=== PATIENT | female | born 1955 | race Caucasian/White ===

== ENCOUNTER → 2017-07-27 18:26 | Outpatient (CLI) | payer OTHER, SELFPAY | PROVIDERS: Family Provider Family Medicine; PCP Family Medicine; Visit Provider Nurse Practitioner Adult Health | DX: R30.0 Dysuria (principal) | CPT/HCPCS: 87086; 87088 ==

== ENCOUNTER 2017-10-30 09:08 | Emergency (ER) | payer OTHER, SELFPAY ==
[2017-10-30 09:09] VITALS: BP 161/80; PULSE 84; RESP 18; TEMP 36.4; O2SAT 97; BMI 30.9
[2017-10-30 09:45] LABS: Bacteria 0 SEEN /hpf (None Seen); Mucous, Urine 0 SEEN /hpf (<or=2+)
[2017-10-30 09:50] LABS: Color, Urine Yellow (Yellow); Glucose, Dipstick Normal (Normal); Ketone-Dipstick 5 mg/dl (Negative); Leukocyte Esterase-Dipstick 500 /ul (Negative); Nitrite-Dipstick Negative (Negative); Occult Blood-Urine 250 /ul (Negative); Protein-Dipstick 30 mg/dl (Negative); Urine Bilirubin Dipstick Negative (Negative); Urine Clarity Clear (Clear); Urine Urobilinogen Normal (Normal)
[2017-10-30 09:52] LABS: Red Blood Cells-Urine 5-10 SEEN /hpf (0-5); White Blood Cells 0-5 SEEN /hpf (0-5)
[2017-10-30 09:53] LABS: Squamous Epithelial Cells - UA 0-5 SEEN /hpf (5-10)
[2017-10-30] MEDS: Ondansetron 4 MG/2 ML Vial IV (09:56)
[2017-10-30] MEDS: 0.9% Normal Saline 1,000 ML 1000 ML IV (09:56)
[2017-10-30] MEDS: Morphine 4 MG/ML Syringe IV (09:57)
--- NOTE | 2017-10-30 10:10 | CT_ITS ---
STUDY: CT ABDOMEN AND PELVIS WITHOUT CONTRAST REASON FOR EXAM: Female, 62 years old. Left flank pain. History of kidney stones. RADIATION DOSAGE (If Supplied By Facility): CTDIvol = ( 14.47 ) mGy, DLP = ( 684.55 ) mGycm TECHNIQUE: Transaxial images were obtained from the dome of the diaphragm to the symphysis pubis without oral contrast, and without intravenous contrast. Sagittal and coronal images were reconstructed. Individualized dose optimization techniques were used for this CT. COMPARISON: Comparison is made with prior study dated January 09, 2017. FINDINGS: Minimal degree of increased markings in the anterior aspect of the left lower lobe suggestive of either atelectasis and/or early infiltrate. The visualized portions of the heart are within normal limits. Normal liver. Increased density within the gallbladder lumen. This may represent sludge. Normal spleen. Normal pancreas. Normal bilateral adrenal glands. There are 2 small nonobstructive intrarenal calculi in the lower pole of the right kidney measuring approximately 4 mm. Mild degree of left hydronephrosis and left hydroureter due to a 4 mm calculus in the distal portion of the left ureter. Left perinephric stranding and periureteric stranding. There is a nonobstructive 4 mm calculus in the lower pole calyx of the left kidney. There is a small hiatal hernia. Normal small intestine. There are multiple colonic diverticula consistent with diverticulosis. The appendix is visualized and appears normal. There is scattered atherosclerotic calcification of the abdominal aorta, without a demonstrated aneurysm. Normal inferior vena cava. There is borderline retroperitoneal lymphadenopathy with enlarged nodes no greater than 10mm in the short axis diameter. Normal urinary bladder. Normal abdominal wall. There are degenerative changes of the visualized lumbar spine. CT/Abdomen/Pelvis without Cont IMPRESSION: 4 mm obstructive calculus in the distal portion of the left ureter causing left hydronephrosis and hydroureter. Bilateral nonobstructive intrarenal calculi. Sigmoid diverticulosis. Electronically Signed: Chester Coello MD at 11:10 EDT Tel [phone], Service support ,
[2017-10-30 10:27] LABS: Absolute Lymphocyte Count 1.27 X10^3/ul (0.83-4.51); Absolute Neutrophil Count 4.6 X10^3/uL (2.0-7.7); Basophil# 0.04 X10^3/uL; Basophil% 0.6 % (0-1); Eosinophil# 0.48 X10^3/uL; Eosinophils% 7.1 % (0-5); Hematocrit 39.6 % (37-47); Hemoglobin 13.3 g/dl (12.0-15.0); Lymphocyte # 1.27 X10^3/ul (4.0); Lymphocyte % 18.7 % (19-41); Mean Corp Hgb Conc 33.6 g/gl (32-36); Mean Corpuscular Hgb 32.6 pg (27.0-32.0); Mean Corpuscular Volume 97.1 fL (81-99); Mean Platelet Vol. 10.7 fl (6.2-12.0); Monocyte# 0.43 X10^3/uL; Monocyte% 6.3 % (0-10); Neutrophil # 4.56 X10^3/uL (2.7-7.7); Neutrophil % 67.2 % (47-70); POSITIVE COUNT NO; POSITIVE DIFFERENTIAL NO; POSITIVE MORPHOLOGY NO; Platelet Count 275 K/mm3 (150-450); RBC Distribution Width CV 13.4 % (11.6-14.6); RBC Distribution Width SD 46.1 fl (35.1-43.9); Red Blood Count 4.08 M/mm3 (4.2-5.4); White Blood Count 6.8 K/mm3 (4.4-11.0)
[2017-10-30 10:40] LABS: AST(SGOT) 23 U/L (15-37); Alanine Aminotransfer ALT/SGPT 32 U/L (13-56); Albumin, Serum 3.6 g/dL (3.2-5.0); Alkaline Phosphatase 58 U/L (45-117); Anion Gap 7 (5-15); BUN 16 mg/dL (7-18); BUN/Creat Ratio 14.2 RATIO (10-20); Chloride 106 mmol/L (98-107); Creatinine, Serum 1.13 mg/dL (0.55-1.02); EST Glomerular Filtration Rate 52 mL/min (>60); Est Glom Filt Rate - Afr Amer 63 mL/min (>60); Estimated Creatinine Clearance 46.45 ml/min; Globulin 3.6 g/dL (2.2-4.2); Glucose 98 mg/dL (74-106); Potassium 3.6 mmol/L (3.5-5.1); Protein, Total 7.2 g/dL (6.4-8.2); Sodium Level 142 mmol/L (136-145)
[2017-10-30 12:16] VITALS: BP 140/80; PULSE 84; RESP 16; O2SAT 97
--- NOTE | 2017-10-30 12:20 | ED.DCSUM_ITS ---
- ER Visit Summary Date of Service: 10/30/17 Chief Complaint: Flank pain History of Present Illness: The patient is a 62 F with left flank pain for about 7 days as well as hematuria. She has a history of kidney stones this is very similar. No fever or chills no dysuria. She has some slight abdominal pain. Physical Examination: Patient does not appear in significant distress. Her lungs are clear abdomen is soft with minimal tenderness in the left lower quadrant. She has some CVA tenderness. Normal exam otherwise. Emergency Department Course and Treatment: Patient is found to have a noninfected 4 mm left-sided kidney stone. She wants to try outpatient treatment we will refer her to urology. She will be given Flomax and analgesia. Disposition: Discharge stable condition Impression: Renal calculus This note was generated with [email or web address] dictation software. It may contain incorrect words, spelling, and punctuation that were not noted in review of the chart prior to signing ED Disposition - Plan for ED Patient: Disposition: Home or Assisted Living Chief Complaint: Flank Pain Instructions: ED Stone Renal W Colic Prescriptions: Oxycodone HCl/Acetaminophen [Percocet 5/325] 1 tab PO Q4H PRN PRN 5 Days #20 tab PRN Reason: Pain Tamsulosin HCl [Flomax] 0.4 mg PO DAILY #10 cap.er.24h Referrals: Ricardo Dozier MD [STAFF PHYSICIAN] - 2 Days
--- NOTE | 2017-10-30 12:23 | ED.VISSUMM ---
- ER Visit Summary Date of Service: 10/30/17 Chief Complaint: [] History of Present Illness: The patient is a 62 F [] Physical Examination: [] Test Results: [] Emergency Department Course and Treatment: [] Treatment Plan: [] Disposition: [] Impression: [] This note was generated with [employer] dictation software. It may contain incorrect words, spelling, and punctuation that were not noted in review of the chart prior to signing ED Disposition - Plan for ED Patient: Disposition: Home or Assisted Living Chief Complaint: Flank Pain Instructions: ED Stone Renal W Colic Prescriptions: Oxycodone HCl/Acetaminophen [Percocet 5/325] 1 tab PO Q4H PRN PRN 5 Days #20 tab PRN Reason: Pain Tamsulosin HCl [Flomax] 0.4 mg PO DAILY #10 cap.er.24h Referrals: Ricardo Dozier MD [STAFF PHYSICIAN] - 2 Days
--- NOTE | 2017-10-30 12:32 | ED.VISSUMM ---
- ER Visit Summary Date of Service: 10/30/17 Chief Complaint: [] History of Present Illness: The patient is a 62 F [] Physical Examination: [] Test Results: [] Emergency Department Course and Treatment: [] Treatment Plan: [] Disposition: [] Impression: [] This note was generated with [employer] dictation software. It may contain incorrect words, spelling, and punctuation that were not noted in review of the chart prior to signing ED Disposition - Plan for ED Patient: Disposition: Home or Assisted Living Chief Complaint: Flank Pain Instructions: ED Stone Renal W Colic Prescriptions: Oxycodone HCl/Acetaminophen [Percocet 5/325] 1 tab PO Q4H PRN PRN 5 Days #20 tab PRN Reason: Pain Oxycodone HCl/Acetaminophen [Percocet 5/325] 1 tab PO Q6H PRN PRN 5 Days #20 tab PRN Reason: Pain Tamsulosin HCl [Flomax] 0.4 mg PO DAILY #10 cap.er.24h Referrals: Ricardo Dozier MD [STAFF PHYSICIAN] - 2 Days
[2017-10-30] MEDS: oxyCODONE 5 MG Tablet PO (12:40)
[2017-10-30] MEDS: Ketorolac 30 MG/ML Syringe IM (12:40)
== END 2017-10-30 12:57 | disposition home or self-care (01) ==
PROVIDERS: Emergency Provider Emergency Medicine; Family Provider Family Medicine; PCP Family Medicine
DX: N20.0 Calculus of kidney (principal); Z87.442 Personal history of urinary calculi; Z72.0 Tobacco use
CPT/HCPCS: 74176; 80053; 81001; 85025; 99284; J7030; A4216; J2405

== ENCOUNTER → 2017-11-08 08:54 | Outpatient (CLI) | payer OTHER, SELFPAY ==
--- NOTE | 2017-11-08 09:05 | EKG12_ITS ---
Test Reason : PREOP Blood Pressure : / mmHG Vent. Rate : 089 BPM Atrial Rate : 089 BPM P-R Int : 152 ms QRS Dur : 072 ms QT Int : 344 ms P-R-T Axes : 032 003 038 degrees QTc Int : 418 ms Normal sinus rhythm Normal ECG When compared with ECG of 09-APR-2007 19:33, No significant change was found Confirmed by VENUS HERRERA ([id number]), clinical editor BRIAN SANCHEZ ([id number]) on 11/08/2017 2:33:56 PM Referred By: Ricardo Dozier Confirmed By:VENUS HERRERA
== END ==
PROVIDERS: Family Provider Family Medicine; PCP Family Medicine; Visit Provider Urology
DX: Z01.812 Encounter for preprocedural laboratory examination (principal); I10 Essential (primary) hypertension
CPT/HCPCS: 93005

== ENCOUNTER 2018-10-28 13:29 | Emergency (ER) | payer OTHER, SELFPAY ==
[2018-10-28 13:29] VITALS: BP 106/62; PULSE 106; RESP 17; TEMP 36.7; O2SAT 100
--- NOTE | 2018-10-28 14:15 | EKG12_ITS ---
Test Reason : DIZZINESS Blood Pressure : / mmHG Vent. Rate : 094 BPM Atrial Rate : 094 BPM P-R Int : 130 ms QRS Dur : 070 ms QT Int : 330 ms P-R-T Axes : -22 014 029 degrees QTc Int : 412 ms Normal sinus rhythm Normal ECG Confirmed by DAIANA ESPANA, BE ([id number]), avid editor MARY ORDAZ ([id number]) on 10/30/2018 2:06:43 PM Referred By: KRISTY Confirmed By:BE AHMADI MD
--- NOTE | 2018-10-28 14:15 | RAD_ITS ---
STUDY: X-RAY CHEST REASON FOR EXAM: Female, 63 years old. Tachycardia, dizziness TECHNIQUE: Single AP portable view of the chest. COMPARISON: None. FINDINGS: The lungs are clear and expanded. There is no demonstrated pleural abnormality. There is mild cardiac enlargement. Normal mediastinum and doug. Normal visualized pulmonary arteries. Normal visualized aortic arch and descending thoracic aorta. There are diffuse degenerative changes of the visualized thoracic spine. Normal visualized ribs, clavicles, and shoulders. There is no demonstrated abnormality of the visualized soft tissue structures of the upper abdomen. RAD/Chest 1 View (Portable) IMPRESSION: Cardiomegaly no evidence of acute focal infiltrate. Electronically Signed: Katalina Talbert MD at 15:18 EDT Tel , Service support ,
[2018-10-28 14:29] VITALS: BP 102/64; BP 106/69; BP 119/71; PULSE 81; PULSE 89
[2018-10-28 14:43] LABS: Absolute Lymphocyte Count 1.17 X10^3/ul (0.83-4.51); Absolute Neutrophil Count 3.7 X10^3/uL (2.0-7.7); Basophil# 0.01 X10^3/uL; Basophil% 0.2 % (0-1); Eosinophil# 0.23 X10^3/uL; Eosinophils% 4.2 % (0-5); Hematocrit 34.5 % (37-47); Hemoglobin 11.6 g/dl (12.0-15.0); Lymphocyte # 1.17 X10^3/ul (4.0); Lymphocyte % 21.1 % (19-41); Mean Corp Hgb Conc 33.6 g/gl (32-36); Mean Corpuscular Hgb 31.5 pg (27.0-32.0); Mean Corpuscular Volume 93.8 fL (81-99); Monocyte# 0.43 X10^3/uL; Monocyte% 7.8 % (0-10); Neutrophil % 66.7 % (47-70); Platelet Count 291 K/mm3 (150-450); RBC Distribution Width CV 13.5 % (11.6-14.6); Red Blood Count 3.68 M/mm3 (4.2-5.4); White Blood Count 5.5 K/mm3 (4.4-11.0)
[2018-10-28 14:44] LABS: Red Blood Cells-Urine 0 SEEN /hpf (0-5)
[2018-10-28 14:44] LABS: POSITIVE COUNT NO; POSITIVE DIFFERENTIAL NO; POSITIVE MORPHOLOGY NO
[2018-10-28 14:47] LABS: Color, Urine Yellow (Yellow); Glucose, Dipstick Normal (Normal); Ketone-Dipstick 15 mg/dl (Negative); Leukocyte Esterase-Dipstick 100 /ul (Negative); Nitrite-Dipstick Negative (Negative); Occult Blood-Urine 10 /ul (Negative); Protein-Dipstick 100 mg/dl (Negative); Specific Gravity, Urine 1.015 (1.002-1.030); Urine Clarity Clear (Clear); Urine Urobilinogen 4 mg/dl (Normal)
[2018-10-28 14:57] LABS: Squamous Epithelial Cells - UA 5-10 SEEN /hpf (5-10); Urine Bilirubin Dipstick 3 mg/dL (Negative); White Blood Cells 5-10 SEEN /hpf (0-5)
[2018-10-28 14:58] LABS: Bacteria 1+ /hpf (None Seen); Mucous, Urine 2+ /hpf (<or=2+)
[2018-10-28] MEDS: 0.9% Normal Saline 1,000 ML 1000 ML IV (15:03)
[2018-10-28 15:08] LABS: Anion Gap 5 (5-15); BUN 22 mg/dL (7-18); BUN/Creat Ratio 19.3 RATIO (10-20); Calcium,Total 9.4 mg/dL (8.5-10.1); Chloride 103 mmol/L (98-107); Creatinine, Serum 1.14 mg/dL (0.55-1.02); EST Glomerular Filtration Rate 51 mL/min (>60); Est Glom Filt Rate - Afr Amer 62 mL/min (>60); Estimated Creatinine Clearance 45.45 ml/min; Glucose 91 mg/dL (74-106); Potassium 3.9 mmol/L (3.5-5.1); Sodium Level 136 mmol/L (136-145)
[2018-10-28 15:33] VITALS: BP 118/64; PULSE 92; RESP 19; O2SAT 98
--- NOTE | 2018-10-28 16:40 | ED.DCSUM_ITS ---
- ER Visit Summary Date of Service: 10/28/18 Chief Complaint: [Dizziness and feeling lightheaded] History of Present Illness: The patient is a 63 F [the emergency department with symptoms for the last 4 to 5 days. Patient states that she has been checking her blood pressure at work and is been little bit on the low side but cannot really tell me how low. Patient also noted that she has had a little bit of an elevated pulse this morning up to 110 and she became concerned. 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 Patient denies any chest pain or shortness of breath with activity or exertion. Patient denies any blood in her stool or black tarry stool. She denies recent illness. She has had no syncopal episodes.] Physical Examination: [HEENT-PERRLA, EOMI. Cranial nerves II through XII grossly intact. TMs clear. Mucous membranes moist. No adenopathy. Cardiovascular-regular rate and rhythm without murmur or ectopy Lungs-clear to auscultation, chest wall stable without crepitus or subcu emphysema Abdomen-normoactive bowel sounds, soft, nontender, no rebound or rigidity, no peritoneal signs. Neuro jsux-oospeo-cf-nose and dalm-og-vqgs testing within normal limits, negative Romberg, negative , Fundi benign Extremities-intact ?4, normal range of motion, normal pulses, atraumatic] Test Results: [EKG obtained on arrival shows sinus rhythm with a ventricular rate of 94 bpm with no acute ST segment changes. CBC with differential was normal. Chemistries unremarkable. Urinalysis was positive for 100 leukocyte esterase, 5-10 WBCs and +1 bacteria. Troponin is less than 1015.] Static vital signs were negative. Emergency Department Course and Treatment: Patient was given Cipro 500 mill grams p.o.] Treatment Plan: [She will be treated with Cipro for 3 days. Patient advised to push fluids. Patient to follow-up with primary care physician in 3 to 5 days.] Disposition: [Discharged to home in stable condition.] Impression: [Dizziness-etiology uncertain UTI] This note was generated with [employer] dictation software. It may contain incorrect words, spelling, and punctuation that were not noted in review of the chart prior to signing ED Disposition - Plan for ED Patient: Referrals: Fausto Thibodeaux III, MD [Primary Care Provider] -
--- NOTE | 2018-10-28 16:43 | ED.DEP ---
ED Disposition - Plan for ED Patient: Instructions: DIZZINESS, Unk Cause, Understanding Urinary Tract Infections (UTIs) Prescriptions: Ciprofloxacin [Cipro] 500 mg PO BID #6 tab Prescription Printed Referrals: Fausto Thibodeaux III, MD [Primary Care Provider] - 3-5 Days
[2018-10-28 16:53] VITALS: BP 117/82; PULSE 80; RESP 15; O2SAT 98
== END 2018-10-28 16:55 | disposition home or self-care (01) ==
PROVIDERS: Emergency Provider Emergency Medicine; Family Provider Family Medicine; PCP Family Medicine
DX: R42 Dizziness and giddiness (principal); N39.0 Urinary tract infection, site not specified; I10 Essential (primary) hypertension; Z72.0 Tobacco use
CPT/HCPCS: 71045; 80048; 81001; 84484; 85025; 93005; 96360; 96361; 99284; J7030; A4216

== ENCOUNTER 2019-11-22 09:07 | Emergency (ER) | payer OTHER, SELFPAY ==
[2019-11-22 09:08] VITALS: BP 101/44; PULSE 103; RESP 18; TEMP 36.6; O2SAT 100; BMI 29.5
[2019-11-22 10:16] VITALS: BP 101/44; PULSE 103; RESP 16; TEMP 36.6; O2SAT 100
--- NOTE | 2019-11-22 10:21 | ED.VIS.GEN ---
History of Present Illness Chief Complaint: Rash Informant: Patient Narrative: Patient states she has had a rash on her body for over a year. She saw dermatology last fall but did not think there recommendations were what she needed. She saw her primary care physician this spring and was given prednisone. She states that the rash is all of her body it davis and itches when she sweats. Has been putting rubbing alcohol on her body even though she knows it will dry it out and make it worse. She has an appointment with dermatology in December. She was at a pharmacy today and a nurse saw her and thought she might need an antibiotic. He states that her diagnosis is dermatitis. She states that today at work she felt a little bit lightheaded which is been an ongoing issue for months that comes and goes. Nothing was different about it today. Past Medical History - Allergies and Home Meds Allergies/Adverse Reactions: Allergies Penicillins [PCN] Allergy (Verified 11/22/19 09:11) Unknown sulfamethoxazole [From Bactrim] Allergy (Verified 11/22/19 09:11) Unknown trimethoprim [From Bactrim] Allergy (Verified 11/22/19 09:11) Unknown Primary Care Physician: Fausto Thibodeaux III, MD [Primary Care Provider] - 1 Week Smoking Status: Current every day smoker Review of Systems General: Denies: Chills, Fever, Sweats Eyes: Denies: Visual changes - bilaterally, Diplopia ENT: Denies: Rhinorrhea, Sore throat Cardiovascular: Denies: Chest pain, Palpitations Respiratory: Denies: Dyspnea, Cough, Dyspnea on exertion Gastrointestinal: Denies: Abdominal pain, Nausea, Vomiting, Diarrhea, Melena, Hematochezia Genitourinary: Denies: Dysuria, Hematuria, Frequency Musculoskeletal: Denies: Back pain, Extremity Pain Skin: Reports: Rash. Denies: Wounds Neurological: Denies: Headache, Weakness, Numbness Physical Exam Vital Signs/Narrative: Vital Signs Temp Pulse Resp BP Pulse Ox 11/22/19 10:16 97.9 F 103 H 16 101/44 L 100 11/22/19 09:08 97.9 F 103 H 18 101/44 L 100 Inital Vital Signs reviewed: Yes General: Well nourished, Well developed, No Acute Distress Head: Normocephalic, Atraumatic Eyes: Perrl, EOMI ENT: Moist mucous membranes, No rhinorrhea Neck: Supple, Nontender Cardiovascular: Regular rate, Regular rhythm, No murmurs Respiratory: No distress, CTA bilaterally, Chest nontender Abdomen: Soft, Nontender, Nondistended, Normal bowel sounds Back: Nontender, Normal Inspection Extremities: Nontender, No edema Skin: - - She has a diffuse rash on her arms legs torso. Skin is thickened and red with irritation. There are multiple scabs from excoriation. Neurological: Alert, Oriented x3, Cranial nerves II-XII grossly intact, Normal Strength, Normal Sensation Psychological: Normal affect, Normal Mood Diagnostic/Tx/Re-eval - Medical Decision Making This appears to be a severe case of eczema. Patient received a dose of Kenalog will place her on a tapering dose of prednisone. I strongly urged the patient to please stop placing rubbing alcohol on her body. She should use a thick lotion like Lubriderm or Aveeno to help moisturize the skin. 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 ED Disposition - Plan for ED Patient: Disposition: Home or Assisted Living Diagnosis: Atopic dermatitis Instructions: ED DERMATITIS Atopic Eczema Prescriptions: Prednisone 10 mg PO DAILY #63 tab Prescription Printed Referrals: Fausto Thibodeaux III, MD [Primary Care Provider] - 1 Week Additional Instructions: Please do not put rubbing alcohol on your body this is only going to make things worse. You need to use a thick lotion like Lubriderm or Aveeno multiple times per day. It is vital that you listen to your financial sales representative and do as they instruct.
[2019-11-22] MEDS: Triamcinolone Acetonide 40 MG/ML Vial IM (10:29)
[2019-11-22 10:57] VITALS: RESP 16
== END 2019-11-22 10:57 | disposition home or self-care (01) ==
LOC: ED 10:38
PROVIDERS: Emergency Provider Emergency Medicine; PCP Family Medicine
DX: L20.9 Atopic dermatitis, unspecified (principal); F17.200 Nicotine dependence, unspecified, uncomplicated
CPT/HCPCS: 96372; 99282

== ENCOUNTER 2019-12-12 11:16 | Emergency (ER) | payer OTHER, SELFPAY ==
[2019-12-12 11:17] VITALS: BP 101/62; PULSE 120; RESP 20; TEMP 36.2; O2SAT 98; BMI 28.7
--- NOTE | 2019-12-12 11:50 | EKG12_ITS ---
Test Reason : Blood Pressure : / mmHG Vent. Rate : 104 BPM Atrial Rate : 104 BPM P-R Int : 142 ms QRS Dur : 068 ms QT Int : 308 ms P-R-T Axes : 050 020 036 degrees QTc Int : 405 ms Sinus tachycardia Otherwise normal ECG Confirmed by HOMAR ESPANA, ELIAS ([id number]), editor continuity and script ALEXEY IRVING ([id number]) on 12/20/2019 11:13:15 A M Referred By: DELMER Confirmed By:BRIANNA GRAF MD
--- NOTE | 2019-12-12 11:54 | ED.VIS.GEN ---
History of Present Illness Chief Complaint: Weakness Informant: Patient Narrative: Patient is a 57-year-old female who presents to the emergency department for generalized weakness. She states that this started on Monday. She felt like her bilateral legs were going to give out on her Monday. This did partially resolve until Monday when it reoccurred. Today she got ready for work and felt pretty well. She started to feel mildly nauseous and lightheaded. She feels generally weak and states she cannot get motivated. She denies any chest pain, palpitations or shortness of breath through any of this. She denies having this happen before in the past. She denies any recent illness including any cough, cold, congestion. No fevers or chills. No episodes of vomiting. No change in bowel habits. No urinary symptoms. No history of heart attacks, strokes or DVT/PE. No leg swelling or calf pain. No headache or vision changes. While lying down she feels pretty well, getting up and moving around seems to exacerbate her symptoms. Past Medical History - Allergies and Home Meds Allergies/Adverse Reactions: Allergies Penicillins [PCN] Allergy (Verified 12/12/19 11:17) Unknown sulfamethoxazole [From Bactrim] Allergy (Verified 12/12/19 11:17) Unknown trimethoprim [From Bactrim] Allergy (Verified 12/12/19 11:17) Unknown Primary Care Physician: Fausto Thibodeaux III, MD [Primary Care Provider] - As soon as possible Prior records reviewed: Yes Past Medical History: - - Hyperlipidemia Smoking Status: Current every day smoker Alcohol: Rare Drugs: None Review of Systems All systems negative except as indicated General: Reports: Malaise. Denies: Chills, Fever, Sweats Eyes: Denies: Visual changes - bilaterally, Diplopia ENT: Denies: Rhinorrhea, Sore throat Cardiovascular: Denies: Chest pain, Palpitations Respiratory: Denies: Dyspnea, Cough, Dyspnea on exertion Gastrointestinal: Denies: Abdominal pain, Nausea, Vomiting, Diarrhea, Melena, Hematochezia Genitourinary: Denies: Dysuria, Hematuria, Frequency Musculoskeletal: Denies: Back pain, Extremity Pain Skin: Reports: Rash - Has multiple superficial lesions over her upper extremity and back.. Denies: Wounds Neurological: Reports: Weakness - Lower extremities and generalized. Denies: Headache, Numbness Physical Exam Vital Signs/Narrative: Vital Signs Temp Pulse Resp BP Pulse Ox 12/12/19 11:17 97.2 F L 120 H 20 H 101/62 98 General: Well nourished, Well developed, No Acute Distress Head: Normocephalic, Atraumatic Eyes: Perrl, EOMI ENT: Moist mucous membranes, No rhinorrhea Neck: Supple, Nontender Cardiovascular: Regular rate, Regular rhythm, No murmurs Respiratory: No distress, CTA bilaterally, Chest nontender Abdomen: Soft, Nontender, Nondistended, Normal bowel sounds Back: Nontender, Normal Inspection Extremities: Nontender, No edema. Negative for: Edema, Calf Tenderness Skin: Normal color, No rash Neurological: Alert, Oriented x3, Cranial nerves II-XII grossly intact, Normal Strength, Normal Sensation Psychological: Normal affect, Normal Mood Diagnostic/Tx/Re-eval - EKG Initial EKG Interpretation: - - Rate of 104 bpm in sinus tachycardia. Normal intervals. Normal axis. No ST elevations or depressions appreciated. No T wave abnormalities. - Medical Decision Making Patient presents to the ED for generalized weakness. On arrival to the ED she is mildly tachycardic but this resolved upon lying down. Physical exam otherwise is benign. Will obtain basic lab work along with cardiac work-up. Patient's lab work showed her creatinine to be mildly elevated. No elevated potassium with this. The rest of lab work was unremarkable. No evidence of infection seen on urinalysis or chest x-ray. Troponin within normal limits. Patient does feel comfortable going home after IV fluids. I did talk about oral hydration with her. I did also call to talk to her PCP who will see her in the office as well as check lab work again. Patient understands and is agreeable with this plan. Will discharge home in stable condition. She Is requesting a work excuse and will be provided one. ED Disposition - Plan for ED Patient: Disposition: Home or Assisted Living Diagnosis: Generalized weakness, ROSS (acute kidney injury) Instructions: ED Weakness [facility] Referrals: Fausto Thibodeaux III, MD [Primary Care Provider] - As soon as possible Additional Instructions: If you do not hear from Dr. Thibodeaux's office today than please call tomorrow. You will need follow-up lab work to reevaluate kidney function.
[2019-12-12 12:22] LABS: Absolute Lymphocyte Count 0.91 X10^3/uL (0.83-4.51); Absolute Neutrophil Count 10.2 X10^3/uL (2.0-7.7); Basophil# 0.02 X10^3/uL; Basophil% 0.2 % (0-1); Eosinophil# 0.01 X10^3/uL; Eosinophils% 0.1 % (0-5); Hematocrit 32.9 % (37-47); Hemoglobin 10.3 g/dL (12.0-15.0); Lymphocyte # 0.91 X10^3/ul (4.0); Lymphocyte % 7.9 % (19-41); Mean Corp Hgb Conc 31.3 g/dL (32-36); Mean Corpuscular Hgb 31.1 pg (27.0-32.0); Mean Corpuscular Volume 99.4 fL (81-99); Monocyte# 0.38 X10^3/uL; Monocyte% 3.3 % (0-10); NRBC Flagged by Analyzer 0 % (0-5); Neutrophil # 10.22 X10^3/uL (2.7-7.7); Neutrophil % 88.2 % (47-70); Platelet Count 390 K/mm3 (150-450); RBC Distribution Width CV 13.8 % (11.6-14.6); RBC Distribution Width SD 50.5 fl (35.1-43.9); Red Blood Count 3.31 M/mm3 (4.2-5.4); White Blood Count 11.6 K/mm3 (4.4-11.0)
--- NOTE | 2019-12-12 12:45 | RAD_ITS ---
STUDY: X-RAY CHEST REASON FOR EXAM: Female, 64 years old. weakness, fatigue, chest pain TECHNIQUE: Single AP portable view of the chest. COMPARISON: None. FINDINGS: The lungs are clear and expanded. There is no demonstrated pleural abnormality. Normal size heart. Normal mediastinum and doug. Normal visualized pulmonary arteries. Normal visualized aortic arch and descending thoracic aorta. There is a mild dextroscoliosis of the thoracic spine. There is degenerative osteoarthritis of the bilateral shoulders. There is no demonstrated abnormality of the visualized soft tissue structures of the upper abdomen. RAD/Chest 1 View (Portable) IMPRESSION: Degenerative changes, as described above. No demonstrated acute cardiopulmonary process. Electronically Signed: Allie Garcia, at 14:03 EDT Tel , Service support ,
[2019-12-12 12:46] LABS: Anion Gap 7 (5-15); BUN 43 mg/dL (7-18); BUN/Creat Ratio 19.9 RATIO (10-20); Calcium,Total 9.5 mg/dL (8.5-10.1); Chloride 106 mmol/L (98-107); Creatinine, Serum 2.16 mg/dL (0.55-1.02); EST Glomerular Filtration Rate 24 mL/min (>60); Est Glom Filt Rate - Afr Amer 30 mL/min (>60); Estimated Creatinine Clearance 23.68 ml/min; Glucose 112 mg/dL (74-106); Magnesium 2.2 mg/dL (1.6-2.6); Potassium 4.6 mmol/L (3.5-5.1); Sodium Level 138 mmol/L (136-145); Thyroid Stim Hormone (TSH) 0.63 uIU/mL (0.358-3.74)
[2019-12-12] MEDS: 0.9% Normal Saline 1,000 ML 999 ML IV (13:50)
[2019-12-12 14:05] LABS: Bacteria 0 SEEN /hpf (None Seen); Mucous, Urine 0 SEEN /hpf (<or=2+); Red Blood Cells-Urine 0 SEEN /hpf (0-5)
[2019-12-12 14:11] LABS: Color, Urine Yellow (Yellow); Glucose, Dipstick Normal (Normal); Ketone-Dipstick Negative (Negative); Leukocyte Esterase-Dipstick 100 /ul (Negative); Nitrite-Dipstick Negative (Negative); Occult Blood-Urine 10 /ul (Negative); Protein-Dipstick 30 mg/dl (Negative); Specific Gravity, Urine 1.015 (1.002-1.030); Urine Bilirubin Dipstick Negative (Negative); Urine Clarity Sl. Cloudy (Clear); Urine Urobilinogen Normal (Normal)
[2019-12-12 14:15] LABS: Squamous Epithelial Cells - UA 0-5 SEEN /hpf (5-10); White Blood Cells 10-25 SEEN /hpf (0-5)
[2019-12-12 14:16] LABS: Amphetamine Urine VISTA NEGATIVE (<1000 ng/mL); Barbiturate Urine VISTA NEGATIVE (< 200 ng/mL); Benzodiazepine Urine VISTA NEGATIVE (< 200 ng/mL); Cocaine Urine VISTA NEGATIVE (< 300 ng/mL); Ecstacy Urine VISTA NEGATIVE (< 500 ng/mL); Hyaline Cast 0-5 SEEN /lpf (0-5); Methadone Urine VISTA NEGATIVE (< 300 ng/mL); PCP Urine VISTA NEGATIVE (< 25 ng/mL); THC Urine VISTA NEGATIVE (< 50 ng/mL); Vista UDS pH Range 5
[2019-12-12 14:52] VITALS: BP 117/68; PULSE 82; RESP 15; O2SAT 99
== END 2019-12-12 15:03 | disposition home or self-care (01) ==
PROVIDERS: Emergency Provider Emergency Medicine; PCP Family Medicine
DX: N17.9 Acute kidney failure, unspecified (principal); R53.1 Weakness; E78.5 Hyperlipidemia, unspecified; F17.200 Nicotine dependence, unspecified, uncomplicated; Z88.0 Allergy status to penicillin; Z88.1 Allergy status to other antibiotic agents; Z88.2 Allergy status to sulfonamides
CPT/HCPCS: 71045; 80048; 80307; 81001; 83735; 84443; 84484; 85025; 87086; 87088; 93005; 99283

== ENCOUNTER 2019-12-22 09:35 | Emergency (ER) | payer OTHER, SELFPAY ==
[2019-12-22 09:37] VITALS: BP 132/88; PULSE 118; RESP 17; TEMP 36.3; O2SAT 100; BMI 28.5
--- NOTE | 2019-12-22 10:08 | EKG12_ITS ---
Test Reason : Blood Pressure : / mmHG Vent. Rate : 098 BPM Atrial Rate : 098 BPM P-R Int : 148 ms QRS Dur : 072 ms QT Int : 328 ms P-R-T Axes : 055 014 028 degrees QTc Int : 418 ms Normal sinus rhythm Normal ECG Confirmed by PAULA ESPANA, VICTOR M ([id number]), business editor ALEXEY IRVING ([id number]) on 12/26/2019 11:32:01 AM Referred By: CORNELL Confirmed By:VICTOR M MITCHELL MD
[2019-12-22] MEDS: 0.9% Normal Saline 1,000 ML 1000 ML IV (10:34)
[2019-12-22 10:38] LABS: Absolute Lymphocyte Count 0.89 X10^3/uL (0.83-4.51); Absolute Neutrophil Count 4.3 X10^3/uL (2.0-7.7); Basophil# 0.01 X10^3/uL; Basophil% 0.2 % (0-1); Eosinophil# 0.16 X10^3/uL; Eosinophils% 2.8 % (0-5); Hematocrit 28.4 % (37-47); Hemoglobin 9.1 g/dL (12.0-15.0); Lymphocyte # 0.89 X10^3/ul (4.0); Lymphocyte % 15.4 % (19-41); Mean Corpuscular Hgb 30.8 pg (27.0-32.0); Mean Corpuscular Volume 96.3 fL (81-99); Mean Platelet Vol. 9.5 fl (6.2-12.0); Monocyte# 0.45 X10^3/uL; Monocyte% 7.8 % (0-10); NRBC Flagged by Analyzer 0 % (0-5); Neutrophil # 4.25 X10^3/uL (2.7-7.7); Neutrophil % 73.6 % (47-70); Platelet Count 323 K/mm3 (150-450); RBC Distribution Width CV 13.2 % (11.6-14.6); RBC Distribution Width SD 46.5 fl (35.1-43.9); Red Blood Count 2.95 M/mm3 (4.2-5.4); White Blood Count 5.8 K/mm3 (4.4-11.0)
--- NOTE | 2019-12-22 10:51 | RAD_ITS ---
STUDY: X-RAY CHEST REASON FOR EXAM: Female, 64 years old. WEAKNESS, LIGHTHEADED, PALPITATIONS AND HYPOTENSION. TECHNIQUE: PA and lateral views of the chest. COMPARISON: 12/12/2019 FINDINGS: The lungs are clear and expanded. There is no demonstrated pleural abnormality. Normal size heart. Normal mediastinum and doug. Normal visualized pulmonary arteries. Normal visualized aortic arch and descending thoracic aorta. Normal visualized thoracic spine. Normal visualized ribs, clavicles, and shoulders. There is no demonstrated abnormality of the visualized soft tissue structures of the upper abdomen. RAD/Chest PA and Lateral IMPRESSION: Normal x-ray examination of the chest. Electronically Signed: Oleg Franklin MD at 11:11 EDT Tel , Service support ,
[2019-12-22 10:54] LABS: ALB/GLOB Ratio 0.8 RATIO (0.9-2.4); AST(SGOT) 18 U/L (15-37); Alanine Aminotransfer ALT/SGPT 23 U/L (13-56); Albumin, Serum 3.2 g/dL (3.2-5.0); Alkaline Phosphatase 51 U/L (45-117); Anion Gap 7 (5-15); BUN 19 mg/dL (7-18); BUN/Creat Ratio 11.4 RATIO (10-20); Calcium,Total 8.6 mg/dL (8.5-10.1); Chloride 109 mmol/L (98-107); Creatinine, Serum 1.66 mg/dL (0.55-1.02); EST Glomerular Filtration Rate 33 mL/min (>60); Est Glom Filt Rate - Afr Amer 40 mL/min (>60); Estimated Creatinine Clearance 30.81 ml/min; Globulin 4.1 g/dL (2.2-4.2); Glucose 134 mg/dL (74-106); Protein, Total 7.3 g/dL (6.4-8.2); Sodium Level 140 mmol/L (136-145)
--- NOTE | 2019-12-22 11:05 | ED.DCSUM_ITS ---
History of Present Illness Chief Complaint: Weakness Informant: Patient Onset: Weeks Context: Gradual Onset Timing: Continuous Narrative: Patient is a 64-year-old female with history of hypertension, dermatitis and anxiety presenting with worsening weakness. Patient states has had generalized malaise and weakness for the past 3 weeks. She states she cannot stand on her feet for more than 10 or 15 minutes force her to get lightheaded and nauseous. Anytime she tries to exert herself she gets really tired. She checked her blood pressure at home and it was 89/49. She followed up with her PCP, Dr. Thibodeaux, who took her off her blood pressure medicines. She is continued to have symptoms. Patient was seen in our ER 10 days ago for the same complaint. At that time she is found to have an ROSS and possible UTI. Urine culture came back negative and patient was discharged home. Patient denies any swelling of her legs. She states she has an appointment to be seen by a specialist on Monday in [place] but does not think she will be able to make it because she feels so weak. She denies any associated fever, edema, chest pain, palpitations, shortness of breath, nausea, vomiting or GI symptoms at rest, urinary symptoms, weight change or night sweats. She has had decreased appetite. Patient that she is had some mild pelvic cramping today but denies any abnormal vaginal discharge. 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 Denies any sick contacts. She does comment she is had diffuse rash on her extremities for the past few years. At one point she saw a tape keller operator. She states she does not put any lotion or anything on its like she supposed to. She is not sure if this is related. Prior similar symptoms: Yes Past Medical History - Allergies and Home Meds Allergies/Adverse Reactions: Allergies Penicillins [PCN] Allergy (Verified 12/22/19 09:37) Unknown sulfamethoxazole [From Bactrim] Allergy (Verified 12/22/19 09:37) Unknown trimethoprim [From Bactrim] Allergy (Verified 12/22/19 09:37) Unknown Primary Care Physician: Fausto Thibodeaux III, MD [Primary Care Provider] - Past Medical History: - - Atopic dermatitis, hypertension, anxiety Surgical History: noncontributory Lives: Alone Smoking Status: Current every day smoker Alcohol: None Drugs: None Review of Systems General: Reports: Malaise, - - Generalized weakness, lightheaded. Denies: Chills, Fever, Sweats Eyes: Denies: Visual changes - bilaterally, Diplopia ENT: Denies: Rhinorrhea, Sore throat Cardiovascular: Denies: Chest pain, Palpitations, Heart racing Respiratory: Denies: Dyspnea, Cough, Dyspnea on exertion Gastrointestinal: Denies: Abdominal pain, Nausea, Vomiting, Diarrhea, Melena, Hematochezia Genitourinary: Denies: Dysuria, Hematuria, Frequency Musculoskeletal: Denies: Back pain, Extremity Pain Skin: Reports: Rash - chronic, unchanged . Denies: Wounds Neurological: Denies: Headache, Weakness, Numbness Physical Exam Vital Signs/Narrative: Vital Signs Temp Pulse Resp BP Pulse Ox 12/22/19 09:37 97.4 F L 118 H 17 132/88 H 100 Inital Vital Signs reviewed: Yes General: Well nourished, Well developed, No Acute Distress Head: Normocephalic, Atraumatic Eyes: Perrl, EOMI, Pale conjunctiva ENT: Moist mucous membranes, No rhinorrhea Neck: Supple, Nontender, No JVD Cardiovascular: Regular rhythm, No murmurs, Tachycardia Respiratory: No distress, CTA bilaterally, Chest nontender Abdomen: Soft, Nontender, Nondistended, Normal bowel sounds Back: Nontender, Normal Inspection. Negative for: CVA tenderness Extremities: Nontender, No edema Skin: Normal color, Rash - Erythematous dry rash on all extremities consistent with atopic dermatitis with no associated cellulitic changes Neurological: Alert, Oriented x3, Cranial nerves II-XII grossly intact, Normal Strength, Normal Sensation Psychological: Normal affect, Normal Mood, - - anxious Diagnostic/Tx/Re-eval Chest X-Ray - ED: 2 View, Read by ED Physician, Read by Radiologist, No Acute Disease Clinical Impression(s) from Imaging Studies Chest X-Ray 12/22/19 10:51 IMPRESSION: Normal x-ray examination of the chest. Electronically Signed: Oleg Franklin MD at 11:11 EDT Tel , Service support , Laboratory Data 12/22/19 12/22/1920 10:25 10:25 10:25 WBC 5.8 RBC 2.95 L Hgb 9.1 L Hct 28.4 L MCV 96.3 MCH 30.8 MCHC 32.0 RDW Std Deviation 46.5 H RDW Coeff of Nisha 13.2 Plt Count 323 MPV 9.5 Immature Gran % (Auto) 0.200 Neut % (Auto) 73.6 H Lymph % (Auto) 15.4 L Arthur % (Auto) 7.8 Eos % (Auto) 2.8 Baso % (Auto) 0.2 Absolute Neuts (auto) 4.3 Absolute Lymphs (auto) 0.89 Nucleated RBC % 0 Sodium 140 Potassium 4.0 Chloride 109 H Carbon Dioxide 24.0 Anion Gap 7 BUN 19 H Creatinine 1.66 H Estim Creat Clear Calc 30.81 Est GFR (MDRD) Af Amer 40 L Est GFR (MDRD) Non-Af 33 L BUN/Creatinine Ratio 11.4 Glucose 134 H Lactic Acid 2.2 H* Calcium 8.6 Total Bilirubin 0.30 AST 18 ALT 23 Alkaline Phosphatase 51 Troponin I < 0.015 B-Natriuretic Peptide Total Protein 7.3 Albumin 3.2 Globulin 4.1 Albumin/Globulin Ratio 0.8 L Urine Color Urine Clarity Urine pH Ur Specific Premier Urine Protein Urine Glucose (UA) Urine Ketones Urine Occult Blood Urine Nitrite Urine Bilirubin Urine Urobilinogen Ur Leukocyte Esterase Urine RBC Urine WBC Ur Squamous Epith Cells Urine Bacteria Hyaline Casts Urine Mucus 12/22/19 12/22/19 10:25 12:50 WBC RBC Hgb Hct MCV MCH MCHC RDW Std Deviation RDW Coeff of Nisha Plt Count MPV Immature Gran % (Auto) Neut % (Auto) Lymph % (Auto) Arthur % (Auto) Eos % (Auto) Baso % (Auto) Absolute Neuts (auto) Absolute Lymphs (auto) Nucleated RBC % Sodium Potassium Chloride Carbon Dioxide Anion Gap BUN Creatinine Estim Creat Clear Calc Est GFR (MDRD) Af Amer Est GFR (MDRD) Non-Af BUN/Creatinine Ratio Glucose Lactic Acid Calcium Total Bilirubin AST ALT Alkaline Phosphatase Troponin I B-Natriuretic Peptide 49.2 Total Protein Albumin Globulin Albumin/Globulin Ratio Urine Color Yellow Urine Clarity Cloudy Urine pH 5.0 Ur Specific Premier 1.020 Urine Protein 15 H Urine Glucose (UA) Normal Urine Ketones 5 H Urine Occult Blood Negative Urine Nitrite Negative Urine Bilirubin 1 H Urine Urobilinogen Normal Ur Leukocyte Esterase 100 H Urine RBC 0 SEEN Urine WBC 5-10 SEEN Ur Squamous Epith Cells 0-5 SEEN Urine Bacteria 1+ Hyaline Casts 0-5 SEEN Urine Mucus 1+ - Rhythm Strip Rhythm Strip: Sinus Rhythm Rate: 98 Ectopy: None - EKG Initial EKG Interpretation: Sinus Rhythm, - - Normal sinus rhythm at a rate of 98 Normal axis Normal intervals Normal ST segments Unchanged compared to prior EKG on 12/12/2019 - Medical Decision Making Patient is evaluated for worsening generalized weakness and lightheadedness over the past 3 weeks. Patient has an anemia that has dropped a point in the last week. Her fecal occult is negative. She has a normal BUN. Her creatinine is actually slightly improved and it was 10 days ago. Cardiac work-up is largely negative. She does not have any associated shortness of breath or real dyspnea on exertion. She is not hypotensive and has normal orthostatic vital signs. Patient is offered admission for further evaluation of acute anemia and her lightheadedness which could be symptomatic anemia. She states she does not want to come in because she has a dog to take care of at home. Did discuss with on- call physician, Dr. Albarado who will ensure that she gets close follow-up this week. He is agreeable with this plan. Patient be started on iron supplements even though she does not have a microcytic anemia. Patient is counseled on signs and symptoms requiring return to the emergency room. Patient verbalizes agreement and understand this plan. Patient discharged home in stable and improved condition. ED Disposition - Plan for ED Patient: Disposition: Home or Assisted Living Diagnosis: Anemia, Generalized weakness Instructions: ED Anemia Type Not Specified, ED Weakness UKO Prescriptions: Ferrous Sulfate [Iron] 325 mg PO BID #60 tab Transmission Status: Received by [facility][id number] Referrals: Fausto Thibodeaux III, MD [Primary Care Provider] - Additional Instructions: You are anemic today. The exact cause is not clear however I think you are safe to follow-up with your doctor for further outpatient evaluation of this. Drink more water and you have been prescribed an iron pill. Please call your doctor's office tomorrow to be seen this week. Let them know that you were seen in the ER today and need close follow-up.
[2019-12-22 11:06] LABS: BNP,B-Type NATRIURETIC PEPTIDE 49.2 pg/mL (0-100); Lactic Acid 2.2 mmol/L (0.4-1.9)
[2019-12-22 12:02] VITALS: BP 141/87; PULSE 91; RESP 18; O2SAT 100
[2019-12-22 12:29] VITALS: BP 147/87; PULSE 87
[2019-12-22 12:32] VITALS: BP 151/96; PULSE 91
[2019-12-22 12:35] VITALS: BP 149/82; PULSE 99
[2019-12-22 12:54] LABS: Red Blood Cells-Urine 0 SEEN /hpf (0-5)
[2019-12-22 12:58] LABS: Color, Urine Yellow (Yellow); Glucose, Dipstick Normal (Normal); Ketone-Dipstick 5 mg/dl (Negative); Leukocyte Esterase-Dipstick 100 /ul (Negative); Nitrite-Dipstick Negative (Negative); Occult Blood-Urine Negative /ul (Negative); Protein-Dipstick 15 mg/dl (Negative); Urine Clarity Cloudy (Clear); Urine Urobilinogen Normal (Normal)
[2019-12-22 13:05] LABS: Bacteria 1+ /hpf (None Seen); Hyaline Cast 0-5 SEEN /lpf (0-5); Mucous, Urine 1+ /hpf (<or=2+); Squamous Epithelial Cells - UA 0-5 SEEN /hpf (5-10); Urine Bilirubin Dipstick 1 mg/dL (Negative); White Blood Cells 5-10 SEEN /hpf (0-5)
[2019-12-22 14:03] VITALS: BP 147/100; PULSE 71; RESP 20; TEMP 36.4; O2SAT 100
[2019-12-22 18:42] LABS: Reflex Lactate? N
== END 2019-12-22 14:21 | disposition home or self-care (01) ==
PROVIDERS: Emergency Provider Emergency Medicine; PCP Family Medicine
DX: D64.9 Anemia, unspecified (principal); R53.1 Weakness; R42 Dizziness and giddiness; I10 Essential (primary) hypertension; F41.9 Anxiety disorder, unspecified; F17.200 Nicotine dependence, unspecified, uncomplicated; Z88.0 Allergy status to penicillin; Z88.1 Allergy status to other antibiotic agents; Z88.2 Allergy status to sulfonamides
CPT/HCPCS: 71046; 80053; 81001; 82274; 83605; 83880; 84484; 85025; 93005; 96360; 99284; J7030

== ENCOUNTER 2020-03-11 09:25 | Emergency (ER) | payer MEDICAID, SELFPAY ==
[2020-03-11] VITALS (7 sets, daily range): BP systolic 122–160; BP diastolic 74–101; PULSE 119–132; RESP 19–29; TEMP 35.7–36.4; O2SAT 98–100; BMI 26.1
--- NOTE | 2020-03-11 09:37 | EKG12_ITS ---
Test Reason : MENTALHEALTH Blood Pressure : / mmHG Vent. Rate : 129 BPM Atrial Rate : 129 BPM P-R Int : 134 ms QRS Dur : 068 ms QT Int : 316 ms P-R-T Axes : 000 024 006 degrees QTc Int : 462 ms Baseline artifact Possible Sinus Tachycardia with PAC's and PVC's Otherwise normal ECG Confirmed by HOMAR ESPANA, ELIAS ([id number]), medical editor ALEXEY IRVING ([id number]) on 03/16/2020 9:29:43 A M Referred By: DEISY Confirmed By:BRIANNA GRAF MD
--- NOTE | 2020-03-11 09:38 | ED.VIS.GEN ---
History of Present Illness Chief Complaint: Mental Health Informant: Patient Narrative: Patient is a 64-year-old female who presents to the emergency department from her PCPs office after being sent in for mental status change. The PCP was concerned that she is have any acute psychotic break. Upon arrival to the emergency department patient is very anxious and complaining of left hand pain. Apparently she has been seen multiple times in the emergency department as well as her PCPs office lately. No abnormalities have been able to be found for her complaints. She does answer questions but is tangential in her thinking. He is covered in bedbugs as well. She states that her hand pain has been bothering her over left 24 hours. She denies any trauma or injury. The hand is pale and she states that this is new over the past day as well. She is never had this happen before in the past. She states that she has been taking [id number] Benadryl regularly. She denies any headache or vision changes. No chest pain or shortness of breath. No abdominal pain or nausea/vomiting. No fevers. Patient does admit to taking Benadryl for treating her symptoms at home. She states she takes 4 to 5 pills/day. She is not sure the milligram dosing. Patient denying any suicidal homicidal ideation states she just wants to get better. Past Medical History - Allergies and Home Meds Allergies/Adverse Reactions: Allergies Penicillins [PCN] Allergy (Verified 03/11/20 09:40) Unknown sulfamethoxazole [From Bactrim] Allergy (Verified 03/11/20 09:40) Unknown trimethoprim [From Bactrim] Allergy (Verified 03/11/20 09:40) Unknown Primary Care Physician: Fausto Thibodeaux III, MD [Primary Care Provider] - Past Medical History: - - anemia, atopic dermatitis Surgical History: noncontributory Smoking Status: Current every day smoker Review of Systems All systems negative except as indicated General: Denies: Chills, Fever, Sweats Eyes: Denies: Visual changes - bilaterally, Diplopia Cardiovascular: Denies: Chest pain, Palpitations Respiratory: Denies: Dyspnea, Cough, Dyspnea on exertion Gastrointestinal: Denies: Abdominal pain, Nausea, Vomiting, Diarrhea Genitourinary: Denies: Dysuria, Hematuria, Frequency Musculoskeletal: Reports: Extremity Pain. Denies: Back pain Skin: Reports: Rash. Denies: Wounds Neurological: Denies: Headache, Weakness, Numbness Psych: Reports: Anxiety. Denies: Suicidal thoughts, Suicidal ideations Physical Exam Inital Vital Signs reviewed: Yes General: Unkempt, - - Patient has bed bugs crawling over her. 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 No radial pulse is palpable.. Negative for: Edema Skin: - - Erythematous skin, left hand is pale and cool to the touch. Neurological: Alert Psychological: Agitated - /Anxious Diagnostic/Tx/Re-eval - EKG Initial EKG Interpretation: - - Rate of 129 bpm in what appears to be atrial fibrillation with an irregularly irregular rhythm. PVCs present. Otherwise normal intervals. QRS duration of 68 with a QTC of 462. Normal axis. No ST elevations or depressions appreciated. No T wave abnormalities. There is baseline artifact. - Medical Decision Making Patient presents to the emergency department with agitation, anxiousness. Her complaint at this time is left hand pain. She was sent in by her PCP for altered mental status. Apparently this is not close to her baseline. She has been taking Benadryl which could explain her symptoms with anticholinergic toxicity. She does appear erythematous, is tachycardic and new altered mental status. We will give a dose of Ativan. Will check basic lab work and EKG. Patient's lab work showed an acute kidney injury. She also has elevated liver enzymes. Her hemoglobin has dropped again. And off for a Hemoccult test. 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 Spoke with the vascular surgeon on-call who states that the patient needs to be transferred for higher level of care. I spoke with the on-call surgeon at [facility] and they recommended starting the heparin despite the drop in the hemoglobin. Hemoccult currently pending but the stool did not appear melanotic. Patient's agitation did mildly improve with Ativan. Even morphine for symptomatic treatment of her hand pain. CT scan of her head did not show any acute intracranial bleed. Heparin has been started. Unfortunately ground transportation is delayed and the vascular surgeon recommended flying the patient to get to the OR as soon as possible. Patient is agreeable with this. There is concern with the atrial fibrillation causing the ischemic hand she could also have micro emboli causing the altered mental status. This may be related to the Benadryl. Will likely require MRI at outpatient facility. - Critical Care Time Critical care time (excluding procedures): 75-104 minutes, Discussing w/Patient &/or Family/Offal Worker, Discussing w/Consultants, Arranging Admission or Transfer, Performing Direct Patient Care at Bedside ED Disposition - Plan for ED Patient: Disposition: [facility] Diagnosis: Arterial occlusion, Altered mental status, Atrial fibrillation, ROSS (acute kidney injury), Transaminitis, Anemia Referrals: Fausto Thibodeaux III, MD [Primary Care Provider] -
[2020-03-11 10:02] LABS: Absolute Lymphocyte Count 1.74 X10^3/uL (0.83-4.51); Absolute Neutrophil Count 7.7 X10^3/uL (2.0-7.7); Basophil# 0.06 X10^3/uL; Basophil% 0.6 % (0-1); Eosinophil# 0.12 X10^3/uL; Eosinophils% 1.2 % (0-5); Hematocrit 26.2 % (37-47); Hemoglobin 7.4 g/dL (12.0-15.0); Lymphocyte # 1.74 X10^3/ul (4.0); Mean Corp Hgb Conc 28.2 g/dL (32-36); Mean Corpuscular Hgb 25.2 pg (27.0-32.0); Mean Corpuscular Volume 89.1 fL (81-99); Mean Platelet Vol. 10.2 fl (6.2-12.0); Monocyte% 5.8 % (0-10); NRBC Flagged by Analyzer 0 % (0-5); Neutrophil # 7.69 X10^3/uL (2.7-7.7); Neutrophil % 74.9 % (47-70); Platelet Count 405 K/mm3 (150-450); RBC Distribution Width CV 16.6 % (11.6-14.6); RBC Distribution Width SD 54.1 fl (35.1-43.9); Red Blood Count 2.94 M/mm3 (4.2-5.4); White Blood Count 10.3 K/mm3 (4.4-11.0)
[2020-03-11] MEDS: LORazepam 2 MG/ML Syringe 1 MG IV (10:06)
[2020-03-11 10:22] LABS: Alcohol, Blood (Medical)-Serum < 3.0 mg/dL
[2020-03-11] MEDS: 0.9% Normal Saline 1,000 ML 999 ML IV (10:23)
[2020-03-11 10:32] LABS: ALB/GLOB Ratio 0.3 RATIO (0.9-2.4); AST(SGOT) 378 U/L (15-37); Alanine Aminotransfer ALT/SGPT 156 U/L (13-56); Albumin, Serum 1.7 g/dL (3.2-5.0); Alkaline Phosphatase 176 U/L (45-117); Anion Gap 19 (5-15); BUN 15 mg/dL (7-18); BUN/Creat Ratio 6.8 RATIO (10-20); Calcium,Total 8.1 mg/dL (8.5-10.1); Chloride 108 mmol/L (98-107); EST Glomerular Filtration Rate 24 mL/min (>60); Est Glom Filt Rate - Afr Amer 29 mL/min (>60); Estimated Creatinine Clearance 23.25 ml/min; Globulin 5.7 g/dL (2.2-4.2); Glucose 205 mg/dL (74-106); Potassium 3.8 mmol/L (3.5-5.1); Protein, Total 7.4 g/dL (6.4-8.2); Sodium Level 140 mmol/L (136-145)
[2020-03-11 10:48] LABS: Acetaminophen (Tylenol) Level 18.1 ug/mL (10.0-30.0); Salicylate 1.8 mg/dL (2.8-20.0)
[2020-03-11 10:51] LABS: Amphetamine Urine VISTA NEGATIVE (<1000 ng/mL); Barbiturate Urine VISTA NEGATIVE (< 200 ng/mL); Benzodiazepine Urine VISTA NEGATIVE (< 200 ng/mL); Cocaine Urine VISTA NEGATIVE (< 300 ng/mL); Ecstacy Urine VISTA NEGATIVE (< 500 ng/mL); Methadone Urine VISTA NEGATIVE (< 300 ng/mL); PCP Urine VISTA NEGATIVE (< 25 ng/mL); THC Urine VISTA NEGATIVE (< 50 ng/mL); Vista UDS pH Range 5
[2020-03-11 10:55] LABS: Thyroid Stim Hormone (TSH) 1.79 uIU/mL (0.358-3.74)
--- NOTE | 2020-03-11 11:03 | CT_ITS ---
STUDY: CT BRAIN WITHOUT CONTRAST REASON FOR EXAM: Female, 64 years old. CHANGE IN MENTAL STATUS RADIATION DOSAGE (If Supplied By Facility): CTDIvol = ( 60.81 ) mGy, DLP = ( 1044.28 ) mGycm TECHNIQUE: Transaxial CT imaging of the brain was performed without administration of intravenous contrast material. Individualized dose optimization techniques were used for this CT. COMPARISON: No relevant priors. FINDINGS: Normal soft tissue structures. Normal calvarium. There is mild cerebral atrophy with widening of the extra-axial spaces and ventricular dilatation. Normal white matter tracts of the cerebral hemispheres. Normal basal ganglia and thalami. Normal brainstem. Normal cerebellum. There is no intracranial hemorrhage. There are no findings of an acute ischemic infarction. Atherosclerotic calcification of the vertebral arteries and cavernous portions of the internal carotid arteries bilaterally. Normal visualized paranasal sinuses. CT/Brain/Head without Contrast IMPRESSION: Chronic involutional changes of the brain. Electronically Signed: Chester Coello, at 11:49 EST , Service support ,
--- NOTE | 2020-03-11 11:35 | ED.RN ---
DR MARTE OFFICE CONTACTED FOR MED LIST
[2020-03-11 12:06] LABS: International Normalized Ratio 1.4; Prothrombin Time (Protime)PT. 17.1 SECONDS (11.7-14.9)
[2020-03-11 12:07] LABS: Partial Thromboplast Time 27.6 Seconds (24.1-36.2)
[2020-03-11] MEDS: Heparin Injection (Vial) 5,000 UNIT/ML VIAL 5000 UNIT IV (12:13)
[2020-03-11] MEDS: HEPARIN/D5w 25,000 UNITS 25,000 UNITS/250 ML IV.SOLN. 11 UNITS IV (12:16)
[2020-03-11] MEDS: Morphine 4 MG/ML Syringe IV (12:34)
--- NOTE | 2020-03-11 13:21 | CM.ED ---
Social Work Consult: APS referral Informant: Nursing staff. Nursing reporting that patient was covered in bed bugs. Patient currently lives alone. Per EMS reports patient car looked as if patient has been living in car. Patient was noted to be covered in bed bugs by EMS as well. Patient to be transferred to [facility] for further medical work-up and care. Telephone call to Justin HASKINS. This social media developer updated Justin on above information/concerns. Amber Mccurdy MSW, ELTON-S
--- NOTE | 2020-03-11 13:22 | ED.RN ---
PER [facility], PT NEEDS TO BE AT [facility] SOONER. CALL FOR AIR TRANSPORTATION
== END 2020-03-11 14:03 | disposition short-term general hospital (02) ==
PROVIDERS: Emergency Provider Emergency Medicine; PCP Family Medicine
DX: I70.90 Unspecified atherosclerosis (principal); I48.91 Unspecified atrial fibrillation; N17.9 Acute kidney failure, unspecified; D64.9 Anemia, unspecified; R41.82 Altered mental status, unspecified; F17.200 Nicotine dependence, unspecified, uncomplicated; Z88.0 Allergy status to penicillin; Z88.1 Allergy status to other antibiotic agents; Z88.2 Allergy status to sulfonamides
CPT/HCPCS: 70450; 80053; 80307; 80320; 80329; 81001; 82274; 84443; 84484; 85025; 85610; 85730; 93005; 93931; 99285; J7030; G0480

== ENCOUNTER 2020-04-20 16:52 | Emergency (ER) | payer MEDICAID, SELFPAY ==
[2020-03-11 09:28] VITALS: BMI 26.1
[2020-04-20 16:53] VITALS: BP 152/93; PULSE 98; RESP 16; TEMP 35.9; O2SAT 97; BMI 24.0
--- NOTE | 2020-04-20 17:08 | ED.VIS.GEN ---
History of Present Illness Chief Complaint: Wound Check Informant: Patient Onset: Days Context: Sudden Onset Timing: Continuous Quality: Drainage and dressing/sleep, left arm amputation Location: Left mid arm Current Severity: Mild Maximum Severity: Mild Worsened by: Patient uncertain Relieved by: Nothing Associated Symptoms: No other symptoms Narrative: Patient is 64-year-old woman who had an amputation of her left upper extremity a couple weeks ago. She was discharged home. She has been seen here since the surgery. She presents because of drainage noted on sleeve. She denies fever, chills night sweats. She denies paresthesia, anesthesia or motor weakness. She states she has difficulty applying the sleep . 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 Status: Acute Past Medical History - Allergies and Home Meds Allergies/Adverse Reactions: Allergies Penicillins [PCN] Allergy (Verified 04/20/20 16:53) Unknown sulfamethoxazole [From Bactrim] Allergy (Verified 04/20/20 16:53) Unknown trimethoprim [From Bactrim] Allergy (Verified 04/20/20 16:53) Unknown Primary Care Physician: Fausto Thibodeaux III, MD [Primary Care Provider] - Prior records reviewed: Yes Surgical History: noncontributory, - - Amputation left upper extremity above the elbow Lives: Alone Smoking Status: Former smoker Alcohol: None Drugs: None Review of Systems General: Denies: Chills, Fever, Malaise, Subjective, Sweats Cardiovascular: Denies: Chest pain Respiratory: Denies: Dyspnea, Cough, Dyspnea on exertion Gastrointestinal: Denies: Nausea, Vomiting Musculoskeletal: Denies: Myalgias, Arthralgias, Neck pain, Back pain, Swelling, Extremity Pain Skin: Reports: Rash, Wounds Hematologic: Denies: Easy bruising, Easy bleeding Physical Exam Vital Signs/Narrative: Vital Signs Temp Pulse Resp BP Pulse Ox 04/20/20 16:53 96.7 F L 98 16 152/93 H 97 Inital Vital Signs reviewed: Yes General: Well nourished, Well developed, No Acute Distress Head: Normocephalic, Atraumatic Eyes: Perrl, EOMI Cardiovascular: Regular rate, Regular rhythm, No murmurs, Normal S1, Normal S2 Respiratory: No distress, CTA bilaterally, Chest nontender Extremities: Nontender, No edema, - - She has a wound that is consistent with a pressure sore/decubitus stage II?3. There is no evidence infection. Skin: Normal color. Negative for: Cyanosis, Diaphoresis, Jaundice Neurological: Alert, Oriented x3, Cranial nerves II-XII grossly intact, Normal Strength, Normal Sensation Psychological: Normal affect Diagnostic/Tx/Re-eval - Medical Decision Making Case management to see patient regarding assistance. Nonadhesive bulky dressing. Follow-up for wound check. Patient was referred to the wound center. ED Disposition - Plan for ED Patient: Disposition: Home or Assisted Living Diagnosis: Decubitus skin ulcer, Dry skin dermatitis Instructions: ED Pressure Injury, ED Psoriasis Referrals: Fausto Thibodeaux III, MD [Primary Care Provider] - 3-5 Days Additional Instructions: 1. You were referred to the wound center 2. Apply Eucerin cream 3 times a day. Recommend wrapping cell of pain after application to prevent the cream being absorbed into the sleeve.
--- NOTE | 2020-04-20 18:08 | CM.ED ---
Social Work Consult: Discharge Planning Informant: Dr. Rudd Met with patient in room. Introduced self and renal social worker role. Patient agreeable to speak with this renal social worker. Patient reports to currently be living in a hotel for the next week and then plans to live with friend, Ursula Sanchez ([phone]) until patient is able to return to patient home. Patient reports that patient home needs cleaned up. Patient reports that Ursula is helping with getting patient back on my feet. Patient reports to have recently lost patient purse when in the hospital and to be going to turkey picker a new I.D. tomorrow to be able to apply for Medicaid as patient does not have insurance. Patient reports no concerns on returning to home but requesting for this renal social worker to call patient friend Ursula as Ursula is helping patient get things together. Telephone call to Ursula. Ursula voices main concern is patient wound care as patient has not been able to take care of wound. Ursula inquiring about daily nursing to have dressing changed. Patient with no insurance. Ursula reports that patient unable to afford to pay for home health. This renal social worker inquiring if Ursula would be willing to learn dressing changes. Ursula is open to learning how to manage patient wound care. Patient to also follow up with the Wound Care center. Ursula coming to hospital to complete wound care teaching with nursing staff. Medical team updated on plan. This renal social worker encouraged patient and Ursula to continue to working towards establishing insurance for patient. Ursula denies any questions and reports to be aware of resources to be utilized such as Job and Family services and [employer]. PLAN: Discharge to community. Amber HENSON, LEANNA
== END 2020-04-20 18:15 | disposition home or self-care (01) ==
LOC: ED 17:22
PROVIDERS: Emergency Provider Emergency Medicine; PCP Family Medicine
DX: L89.93 Pressure ulcer of unspecified site, stage 3 (principal); L85.3 Xerosis cutis; Z86.73 Personal history of transient ischemic attack (TIA), and cerebral infarction without residual deficits; Z87.891 Personal history of nicotine dependence; Z88.0 Allergy status to penicillin; Z88.1 Allergy status to other antibiotic agents; Z88.2 Allergy status to sulfonamides
CPT/HCPCS: 99282

== ENCOUNTER → 2020-07-27 13:57 | Outpatient (CLI) | payer MEDICARE, SELFPAY | PROVIDERS: PCP Family Medicine; Referring Provider Nurse Practitioner Adult Health; Visit Provider Nurse Practitioner Adult Health | DX: R31.0 Gross hematuria (principal) | CPT/HCPCS: 87086; 87088 ==

== ENCOUNTER → 2020-07-30 12:54 | Outpatient (CLI) | payer BC, SELFPAY ==
--- NOTE | 2020-07-30 12:58 | CT_ITS ---
ACR Level 3 findings have been noted. An addendum which confirms receipt of the report will follow. INDICATION: GROSS HEMATURIA/CALCULUS OF KIDNEY EXAMINATION: CT Abdomen And Pelvis WO/W Contrast Injection TECHNIQUE: Helically acquired images were obtained of the abdomen and pelvis before and after IV contrast. A radiation dose optimization technique was used for this scan. IV Contrast dosage and agent: 100 cc [id number] Oral contrast: None. COMPARISON: 10/30/2017. FINDINGS: Visualized lung bases: Unremarkable Liver: Unremarkable Gallbladder: Unremarkable Spleen: Unremarkable Pancreas: Unremarkable Adrenal Glands: Unremarkable Kidneys: 7 mm stone seen in the right ureterovesical junction. No significant hydronephrosis. Vasculature: Moderate scattered aortoiliac atherosclerotic calcifications. GI Tract: Scattered diverticula throughout the colon without evidence of inflammation. Lymphadenopathy: None Peritoneum: No ascites. Bladder: Collapsed. Reproductive organs: Unremarkable Bones/Soft tissues: Mild scattered degenerative changes of the visualized spine. CT/CT Abd/Pelvis W/WO Contrast IMPRESSION: 7 mm stone seen in the right ureterovesical junction with no significant hydronephrosis. Electronically Signed: Dhaval Park MD at 22:11 EDT Tel , Service support ,
[2020-07-30 13:20] LABS: CREATININE FINGERSTICK 1.4 mg/dL (0.55-1.02)
== END ==
PROVIDERS: PCP Family Medicine; Visit Provider Nurse Practitioner Adult Health
DX: R31.0 Gross hematuria (principal); N20.0 Calculus of kidney
CPT/HCPCS: 74178; Q9967

== ENCOUNTER 2020-09-11 13:13 | Observation (INO) | payer MEDICARE, SELFPAY ==
[2020-09-11] VITALS (11 sets, daily range): BP systolic 119–148; BP diastolic 66–87; PULSE 81–96; RESP 15–23; TEMP 36.5–37; O2SAT 88–100; BMI 27.6; BMI 28.3
--- NOTE | 2020-09-11 13:35 | EKG12_ITS ---
Test Reason : GEN ILLNESS Blood Pressure : / mmHG Vent. Rate : 085 BPM Atrial Rate : 085 BPM P-R Int : 166 ms QRS Dur : 072 ms QT Int : 358 ms P-R-T Axes : 032 007 026 degrees QTc Int : 426 ms Normal sinus rhythm Normal ECG Confirmed by HOMAR ESPANA, ELIAS ([id number]), manuscript editor ALEXEY IRVING ([id number]) on 09/15/2020 10:13:56 A M Referred By: KAYLAN Confirmed By:BRIANNA GRAF MD
--- NOTE | 2020-09-11 13:37 | EX.ED.DYSGE1 ---
HPI History of Present Illness Chief Complaint: Weakness Informant: patient Onset/Context/Timing Onset: Days Context: Gradual Onset Narrative Narrative: Patient presents from urgent care secondary to weakness and shingles. She states she got her last Covid shot 8 days ago. 3 days ago she developed shingles-like rash to her left shoulder and upper chest region. She went to the urgent care today. While at the urgent care patient became lightheaded and had low blood pressure. She was sent to the ER by squad. EMS states they were told the patient's blood pressure was low but they are reading was actually high. On arrival to the emergency room her systolic blood pressure was 116. When I am in the room her systolic blood pressure is 151. Patient does report not eating and drinking much the last couple days. She did not take her medications this morning. [facility] Medical History Amputation of arm Anxiety Atrial fibrillation Chronic pain Hypertension Kidney stones Rheumatoid arteritis Smoker Stroke/cerebrovascular accident Home Medications duloxetine 60 mg PO DAILY 10/30/17 [History Last Taken Unknown] ferrous sulfate 325 mg PO BID #60 tab 12/22/19 [Rx Last Taken Unknown] hydroxyzine HCl 12.5 mg PO BID PRN 03/11/20 [History Last Taken Unknown] lisinopril 10 mg PO DAILY 03/11/20 [History Last Taken Unknown] Allergy/AdvReac Type Severity Reaction Status Date / Time Penicillins [PCN] Allergy Unknown Verified 09/11/20 13:14 sulfamethoxazole Allergy Unknown Verified 09/11/20 13:14 [From Bactrim] trimethoprim [From Bactrim] Allergy Unknown Verified 09/11/20 13:14 Surgical History (Updated 09/11/20 @ 13:23 by Aaron Chow) Hx of colonoscopy Social History Smoking Status: Current some day smoker ROS ROS ED Constitutional Constitutional ED: Denies chills or fever(s) Eyes Eyes: Denies change in vision ENT ENT ED: Denies sore throat Cardiovascular Cardiovascular: Denies chest pain Respiratory/Chest Respiratory/Chest: Denies cough or dyspnea Gastrointestinal Gastrointestinal: Denies abdominal pain, diarrhea, nausea or vomiting Genitourinary Genitourinary ED: Denies dysuria Musculoskeletal Musculoskeletal: Denies back pain Integumentary Reports rash Neurologic Neurologic: Denies headache(s) or weakness Psychiatric Psychiatric: Denies anxiety or depression Endocrine Endocrinology: Denies polydipsia or polyuria Allergic/Immunologic Allergic/Immunologic ED: Denies urticaria EXAM Physical Exam Const Vital Signs: 09/11/20 13:14 09/11/20 13:18 09/11/20 13:29 Temperature 98.2 F Temperature Source Oral Pulse Rate 87 82 Respiratory Rate 18 15 Respiratory Effort Normal Blood Pressure 119/79 119/79 Blood Pressure Mean 92 92 Pulse Ox 100 99 Oxygen Delivery Method Room Air Room Air 09/11/20 15:16 Temperature Temperature Source Pulse Rate 89 Respiratory Rate 16 Respiratory Effort Blood Pressure Blood Pressure Mean Pulse Ox 100 Oxygen Delivery Method Room Air Positive well nourished and well developed General Appearance ED: well developed HEENT Reports normocephalic and head/scalp atraumatic Eyes PERRL and EOMs intact bilaterally Neck supple Chest Wall Chest Narrative: Shingles rash to the left upper chest with scabbed lesions. Resp normal respiratory effort and clear to auscultation bilaterally Cardio regular rate and regular rhythm GI normal to inspection, nondistended, normoactive bowel sounds Palpation: soft Extremity Extremity Narrative: Prior left upper extremity amputation Neuro oriented x3 Neuro Narrative: No focal neurologic deficits. Sensorium / Orientation: alert Psych mental status grossly normal Skin Skin Narrative: Shingles lesions as above MDM MDM MDM Narrative Medical decision making narrative: Patient was placed on clinical research monitor. She is in contact precautions secondary to shingles. Lab Data Attestation: I reviewed the patient's lab results. Labs: Laboratory Results - last 24 hr 09/11/20 09/11/20 14:08 14:08 WBC 5.7 RBC 4.14 L Hgb 11.8 L Hct 37.4 MCV 90.3 MCH 28.5 MCHC 31.6 L RDW Std Deviation 55.9 H RDW Coeff of Nisha 17.0 H Plt Count 289 MPV 10.5 Immature Gran % (Auto) 0.400 Neut % (Auto) 71.7 H Lymph % (Auto) 13.9 L [place] % (Auto) 11.3 H Eos % (Auto) 2.3 Baso % (Auto) 0.4 Absolute Neuts (auto) 4.1 Absolute Lymphs (auto) 0.79 L Nucleated RBC % 0 Sodium 137 Potassium 4.1 Chloride 102 Carbon Dioxide 29.0 Anion Gap 6 BUN 12 Creatinine 0.94 Estim Creat Clear Calc 53.69 Est GFR (MDRD) Af Amer 77 Est GFR (MDRD) Non-Af 64 BUN/Creatinine Ratio 12.8 Glucose 103 Calcium 9.4 Treatment and Re-Evaluation Comments:: Patient was given acyclovir and prednisone for her shingles. She was given fentanyl and Zofran for pain. On repeat evaluation test results are discussed with her. Nursing staff did note her oxygen saturations would drop into the mid to upper 80s when she was sleeping. She was placed on 2 L nasal cannula. She is complaining of significant headache and is given Toradol, Reglan, and Benadryl. At this time patient states her headache is significantly improved. She still feels generally weak and has concerns about going home as she does have 16 steps to get into her home. She did have a near syncopal episode with hypotension at the doctor's office. She admits to not eating and drinking well recently and now has a significant shingles infection. I will speak with hospitalist regarding observation overnight to ensure vital signs are stable and she is able to get up and ambulate and tolerate p.o. Discharge Plan Triage Chief Complaint: Weakness ED Provider: Ana Aranda Dx/Rx/DC Orders Clinical Impression: Near syncope, Transient hypotension Prescriptions: No Action duloxetine 60 MG Capsule.Dr 60 mg PO DAILY RF: 0 ferrous sulfate 325 MG tablet 325 mg PO BID Qty: 60 RF: 0 lisinopril 10 MG tablet 10 mg PO DAILY RF: 0 hydroxyzine HCl 25 MG tablet 12.5 mg PO BID PRN (Reason: Anxiety) RF: 0 Primary Care Provider: Fausto Thibdoeaux III Referrals: Fausto Thibodeaux III, MD [Primary Care Provider] - Disposition Disposition: Acute Care Hospital [facility]
[2020-09-11] MEDS: fentaNYL 100 MCG/2 ML Ampul 25 MCG IV (14:04)
[2020-09-11] MEDS: predniSONE 20 MG Tablet 60 MG PO (14:04)
[2020-09-11] MEDS: Ondansetron 4 MG/2 ML Vial IV (14:04)
[2020-09-11 14:19] LABS: Absolute Lymphocyte Count 0.79 X10^3/uL (0.83-4.51); Absolute Neutrophil Count 4.1 X10^3/uL (2.0-7.7); Basophil# 0.02 X10^3/uL; Basophil% 0.4 % (0-1); Eosinophil# 0.13 X10^3/uL; Eosinophils% 2.3 % (0-5); Hematocrit 37.4 % (37-47); Hemoglobin 11.8 g/dL (12.0-15.0); Lymphocyte # 0.79 X10^3/ul (0.83-4.51); Lymphocyte % 13.9 % (19-41); Mean Corp Hgb Conc 31.6 g/dL (32-36); Mean Corpuscular Hgb 28.5 pg (27.0-32.0); Mean Corpuscular Volume 90.3 fL (81-99); Mean Platelet Vol. 10.5 fl (6.2-12.0); Monocyte# 0.64 X10^3/uL; Monocyte% 11.3 % (0-10); NRBC Flagged by Analyzer 0 % (0-5); Neutrophil # 4.08 X10^3/uL (2.7-7.7); Neutrophil % 71.7 % (47-70); Platelet Count 289 K/mm3 (150-450); RBC Distribution Width SD 55.9 fl (35.1-43.9); Red Blood Count 4.14 M/mm3 (4.2-5.4); White Blood Count 5.7 K/mm3 (4.4-11.0)
[2020-09-11 14:30] LABS: Anion Gap 6 (5-15); BUN 12 mg/dL (7-18); BUN/Creat Ratio 12.8 RATIO (10-20); Calcium,Total 9.4 mg/dL (8.5-10.1); Chloride 102 mmol/L (98-107); Creatinine, Serum 0.94 mg/dL (0.55-1.02); EST Glomerular Filtration Rate 64 mL/min (>60); Est Glom Filt Rate - Afr Amer 77 mL/min (>60); Estimated Creatinine Clearance 53.69 ml/min; Glucose 103 mg/dL (74-106); Potassium 4.1 mmol/L (3.5-5.1); Sodium Level 137 mmol/L (136-145)
[2020-09-11] MEDS: Acyclovir 800 MG Tablet PO ×2 (14:51→22:52)
[2020-09-11] MEDS: DiphenhydrAMINE 50 MG/ML Syringe 12.5 MG IV (15:47)
[2020-09-11] MEDS: Metoclopramide 10 MG/2 ML Vial 5 MG IV (15:47)
[2020-09-11] MEDS: Ketorolac 30 MG/ML Syringe IV (15:47)
--- NOTE | 2020-09-11 17:26 | HP.PCM.HOS_ITS ---
HPI - General General Date of Admission: 09/11/20 HPI Narrative PHONG JACKSON, is a 65 F with a PMH as outlined who presents with a complaint of weakness. Patient got her second Covid shot about 8 days ago. She had been feeling weak since then about 3 days ago she broke out in a rash over her left shoulder and upper chest region which was shingles-like. She still felt weak and lethargic so she went to the urgent care and was there she became lightheaded and had low blood pressure so she was sent into the ED. She denied any fever or chills, nausea vomiting or diarrhea. Review of systems otherwise negative. Vitals in the ED showed temperature of 98.2 Fahrenheit with pulse rate of 87, respiratory rate of 18 and blood pressure of 119/79. Pulse ox 100% on room air. CBC showed hemoglobin of 11.8 with WBC of 5.7 and platelets of 289. Chemistry was essentially unremarkable. EKG showed no acute ST changes. Patient was also noted to desaturate into the 80s when sleeping so she was placed on 2 L of oxygen. She was started on acyclovir and prednisone for her shingles. Patient felt too weak to go home so she has been admitted to be managed for near syncope and debility as well as shingles infection [facility] Medical History (Updated 09/11/20 @ 18:[address] Radha Patel MD) Amputation of left arm Anxiety Atrial fibrillation Chronic pain Chronic pain DVT (deep venous thrombosis) GERD (gastroesophageal reflux disease) Hypertension Kidney stones Rheumatoid arthritis Smoker Stroke/cerebrovascular accident Transient hypotension Home Medications duloxetine 60 mg PO DAILY 10/30/17 [History Last Taken 09/10/20] acetaminophen [Tylenol Extra Strength] 1,000 mg PO Q4H PRN 09/11/20 [History Last Taken 09/11/20] amiodarone 200 mg PO DAILY 09/11/20 [History Last Taken 09/10/20] atorvastatin 80 mg PO DAILY 09/11/20 [History Last Taken 09/10/20] diphenhydramine HCl [Benadryl Allergy] 25 mg PO TID PRN 09/11/20 [History Last Taken 09/11/20] pantoprazole 40 mg PO DAILY 09/11/20 [History Last Taken 09/10/20] rivaroxaban [Xarelto] 20 mg PO DAILY 09/11/20 [History Last Taken 09/10/20] valacyclovir 1,000 mg PO TID 09/11/20 [History Last Taken Unknown] Allergy/AdvReac Type Severity Reaction Status Date / Time Penicillins [PCN] Allergy Rash Verified 09/11/20 17:35 sulfamethoxazole Allergy Rash Verified 09/11/20 17:35 [From Bactrim] trimethoprim [From Bactrim] Allergy Rash Verified 09/11/20 17:35 Surgical History (Updated 09/11/20 @ 13:23 by Aaron Chow) Hx of colonoscopy Social History Smoking Status: Current some day smoker Vital Signs Vital Signs Vital Signs: 09/11/20 13:14 09/11/20 13:18 09/11/20 13:29 Temperature 98.2 F Temperature Source Oral Pulse Rate 87 82 Respiratory Rate 18 15 Respiratory Effort Normal Blood Pressure 119/79 119/79 Blood Pressure Mean 92 92 Pulse Ox 100 99 Oxygen Delivery Method Room Air Room Air 09/11/20 15:16 Temperature Temperature Source Pulse Rate 89 Respiratory Rate 16 Respiratory Effort Blood Pressure Blood Pressure Mean Pulse Ox 100 Oxygen Delivery Method Room Air Physical Exam Const alert, oriented x3 and no apparent distress General Appearance: cooperative HEENT normocephalic, head/scalp atraumatic, hearing grossly normal bilaterally and moist oral mucous membranes Eyes PERRL, EOMs intact bilaterally and conjunctivae normal Neck no lymphadenopathy, supple and no JVD Resp normal respiratory effort, no retractions, no use of accessory muscles and clear to auscultation bilaterally Cardio regular rate, regular rhythm, S1 normal heart sound, S2 normal heart sound and no murmurs GI normal to inspection, nondistended, normoactive bowel sounds, soft to palpation and non-tender Extremity normal to inspection, full ROM and no clubbing, cyanosis or edema Peripheral Pulses: Yes pulses 2+ throughout and brachial pulses present Skin Skin Narrative: papulo-pustular rash over left shoulder. left above elbow amputation Neuro oriented x3 and moves all extremities Sensorium / Orientation: awake and alert Psych affect normal Lab / Micro Data Result Diagrams: 09/11/20 14:08 09/11/20 14:08 Labs: Laboratory Results - last 24 hr 09/11/20 09/11/20 14:08 14:08 WBC 5.7 RBC 4.14 L Hgb 11.8 L Hct 37.4 MCV 90.3 MCH 28.5 MCHC 31.6 L RDW Std Deviation 55.9 H RDW Coeff of Nisha 17.0 H Plt Count 289 MPV 10.5 Immature Gran % (Auto) 0.400 Neut % (Auto) 71.7 H Lymph % (Auto) 13.9 L [place] % (Auto) 11.3 H Eos % (Auto) 2.3 Baso % (Auto) 0.4 Absolute Neuts (auto) 4.1 Absolute Lymphs (auto) 0.79 L Nucleated RBC % 0 Sodium 137 Potassium 4.1 Chloride 102 Carbon Dioxide 29.0 Anion Gap 6 BUN 12 Creatinine 0.94 Estim Creat Clear Calc 53.69 Est GFR (MDRD) Af Amer 77 Est GFR (MDRD) Non-Af 64 BUN/Creatinine Ratio 12.8 Glucose 103 Calcium 9.4 Assessment & Plan Assessment/Plan (1) Transient hypotension: (2) Near syncope: (3) Shingles: PLAN: #Debility due to near syncope * hasnt been feeling so good since she had her last covid shot. * had a transient episode of hypotension which subsequently resolved. She however feels too weak to go home * likely due to decreased intake * now feels much better. * admit to PCU * hydrate gently with IVF * consult PT/OT * fall precautions * #Shingles * patient has a dermatomal rash over the left shoulder * says it started 2-3 days ago * hasnt had the shingles vaccine * start on acyclovir 800mg tid * #History of stroke * States it was due to A. 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 * Also has a history of intracranial hemorrhage. * stable * #History of A. fib: Rate controlled. On amiodarone and Xarelto #GERD: On PPI DVT prophylaxis: on xarelto Disposition: for likely DC home tomorrow if she feels well enough and is able to ambulate Visit Charges OBSV E&M: 80258 Initial observation care L2
--- NOTE | 2020-09-11 17:50 | NURSING ---
106 OBS KORAM NEAR SYNCOPE, SHINGLES, GENERALIZED WEAKNESS
--- NOTE | 2020-09-11 18:08 | RAD_ITS ---
INDICATION: sob EXAMINATION/TECHNIQUE: X-RAY - XR Chest 1 View COMPARISON: 12/22/2019. FINDINGS: The lungs are clear. Tortuous and calcified thoracic aorta. The heart is not enlarged. No pleural effusion or pneumothorax. Degenerative changes of the thoracic spine and shoulders. RAD/Chest 1 View (Portable) IMPRESSION: No acute radiographic abnormalities. Electronically Signed: Dhaval Park MD at 18:28 EDT Tel , Service support ,
--- NOTE | 2020-09-11 19:40 | NURSING ---
Patient on RA and kept SPO2 at 94-95 at rest and 93 when amb to bathroom and back -- patient comfortable and on room air for now. Will monitor.
[2020-09-11] MEDS: 0.9% Normal Saline 1,000 ML 100 ML IV (21:00)
[2020-09-11] MEDS: Ferrous Sulfate 325 MG Tablet PO (22:51)
[2020-09-11] MEDS: Pantoprazole Sodium 40 MG Tablet PO (22:51)
[2020-09-11] MEDS: Rivaroxaban 20 MG Tablet PO (22:51)
[2020-09-11] MEDS: Amiodarone 200 MG Tablet PO (22:51)
[2020-09-11] MEDS: DULoxetine Hcl 60 MG Capsule PO (22:52)
[2020-09-11] MEDS: Lisinopril 10 MG Tablet PO (22:52)
[2020-09-11] MEDS: DiphenhydrAMINE 25 MG Capsule PO (23:06)
[2020-09-12 02:10] VITALS: BP 115/68; PULSE 74; RESP 16; TEMP 35.8; O2SAT 94
[2020-09-12 03:00] VITALS: PULSE 76
[2020-09-12] MEDS: DiphenhydrAMINE 25 MG Capsule PO ×2 (04:19→11:14)
[2020-09-12] MEDS: Acetaminophen 325 MG Tablet 650 MG PO (04:19)
[2020-09-12 06:00] VITALS: BP 115/64; BP 132/76; BP 144/71; PULSE 76; PULSE 77; PULSE 78
[2020-09-12 06:12] VITALS: BP 115/64; PULSE 76; RESP 16; TEMP 36.4; O2SAT 95
[2020-09-12] MEDS: Acyclovir 800 MG Tablet PO (06:18)
[2020-09-12] MEDS: 0.9% Normal Saline 1,000 ML 100 ML IV (06:28)
[2020-09-12 06:42] LABS: Absolute Lymphocyte Count 0.82 X10^3/uL (0.83-4.51); Absolute Neutrophil Count 3.4 X10^3/uL (2.0-7.7); Basophil# 0.01 X10^3/uL; Basophil% 0.2 % (0-1); Hemoglobin 10.3 g/dL (12.0-15.0); Lymphocyte # 0.82 X10^3/ul (0.83-4.51); Lymphocyte % 17.5 % (19-41); Mean Corp Hgb Conc 30.3 g/dL (32-36); Mean Corpuscular Hgb 27.8 pg (27.0-32.0); Mean Corpuscular Volume 91.6 fL (81-99); Mean Platelet Vol. 10.4 fl (6.2-12.0); Monocyte# 0.48 X10^3/uL; Monocyte% 10.2 % (0-10); NRBC Flagged by Analyzer 0 % (0-5); Neutrophil # 3.36 X10^3/uL (2.7-7.7); Neutrophil % 71.7 % (47-70); Platelet Count 280 K/mm3 (150-450); RBC Distribution Width SD 57.3 fl (35.1-43.9); Red Blood Count 3.71 M/mm3 (4.2-5.4); White Blood Count 4.7 K/mm3 (4.4-11.0)
[2020-09-12 07:01] VITALS: PULSE 76
[2020-09-12 07:03] LABS: Anion Gap 6 (5-15); BUN 22 mg/dL (7-18); BUN/Creat Ratio 24.2 RATIO (10-20); Calcium,Total 8.6 mg/dL (8.5-10.1); Chloride 108 mmol/L (98-107); Creatinine, Serum 0.91 mg/dL (0.55-1.02); EST Glomerular Filtration Rate 66 mL/min (>60); Est Glom Filt Rate - Afr Amer 80 mL/min (>60); Estimated Creatinine Clearance 55.46 ml/min; Glucose 119 mg/dL (74-106); Potassium 4.6 mmol/L (3.5-5.1); Sodium Level 140 mmol/L (136-145)
[2020-09-12 09:40] VITALS: BP 139/73; PULSE 86; RESP 18; TEMP 36.7; O2SAT 93
[2020-09-12] MEDS: Amiodarone 200 MG Tablet PO (09:40)
[2020-09-12] MEDS: DULoxetine Hcl 60 MG Capsule PO (09:40)
[2020-09-12] MEDS: Pantoprazole Sodium 40 MG Tablet PO (09:40)
[2020-09-12] MEDS: Lisinopril 10 MG Tablet PO (09:40)
[2020-09-12] MEDS: Ferrous Sulfate 325 MG Tablet PO (09:40)
--- NOTE | 2020-09-12 09:55 | DS.PCM_ITS ---
Providers Date of Admission: 09/11/20 Primary Care Physician: Dr. Fausto Thibodeaux III, MD Reason For Visit: NEAR SYNCOPE Diagnosis Discharge Diagnosis (1) Transient hypotension: Status: Acute Code(s): I95.9 - Hypotension, unspecified (2) Near syncope: Status: Acute Code(s): R55 - Syncope and collapse (3) Shingles: Status: Acute Code(s): B02.9 - Zoster without complications Medications at Discharge Home Medications duloxetine 60 mg PO DAILY 10/30/17 Xarelto 20 mg PO DAILY 09/11/20 acetaminophen [Tylenol Extra Strength] 1,000 mg PO Q4H PRN 09/11/20 amiodarone 200 mg PO DAILY 09/11/20 atorvastatin 80 mg PO DAILY 09/11/20 diphenhydramine HCl [Benadryl Allergy] 25 mg PO TID PRN 09/11/20 pantoprazole 40 mg PO DAILY 09/11/20 valacyclovir 1,000 mg PO TID 09/11/20 Hospital Course Summary of Care Provided Minutes Spent on Discharge: 35 Hospital Course: Patient is a 65-year-old lady with recent diagnosis of shingles involving the left shoulder presented with generalized weakness Physical deconditioning ?Patient was noted to have transient episodes of hypotension resuscitated with IV fluids did resolve Recent diagnosis of varicella-zoster ?Patient is on acyclovir did continue History of paroxysmal A. fib -Rate controlled on amiodarone patient is on systemic anticoagulation with Xarelto History of CVA History of intracranial hemorrhage GERD Physical Exam Const alert and oriented x3 General Appearance: cooperative Eyes conjunctivae normal Chest inspection of chest normal Resp Effort and Inspection: able to speak in complete sentences Neuro Sensorium / Orientation: awake Psych affect normal ABG / Lab / Microbiology Data Result Diagrams: 09/12/20 06:25 09/12/20 06:25 Laboratory: Laboratory Results - last 24 hr 09/11/20 09/11/20 09/12/20 14:08 14:08 06:25 WBC 5.7 4.7 RBC 4.14 L 3.71 L Hgb 11.8 L 10.3 L Hct 37.4 34.0 L MCV 90.3 91.6 MCH 28.5 27.8 MCHC 31.6 L 30.3 L RDW Std Deviation 55.9 H 57.3 H RDW Coeff of Nisha 17.0 H 17.0 H Plt Count 289 280 MPV 10.5 10.4 Immature Gran % (Auto) 0.400 0.400 Neut % (Auto) 71.7 H 71.7 H Lymph % (Auto) 13.9 L 17.5 L [place] % (Auto) 11.3 H 10.2 H Eos % (Auto) 2.3 0.0 Baso % (Auto) 0.4 0.2 Absolute Neuts (auto) 4.1 3.4 Absolute Lymphs (auto) 0.79 L 0.82 L Nucleated RBC % 0 0 Sodium 137 Potassium 4.1 Chloride 102 Carbon Dioxide 29.0 Anion Gap 6 BUN 12 Creatinine 0.94 Estim Creat Clear Calc 53.69 Est GFR (MDRD) Af Amer 77 Est GFR (MDRD) Non-Af 64 BUN/Creatinine Ratio 12.8 Glucose 103 Calcium 9.4 09/12/20 06:25 WBC RBC Hgb Hct MCV MCH MCHC RDW Std Deviation RDW Coeff of Nisha Plt Count MPV Immature Gran % (Auto) Neut % (Auto) Lymph % (Auto) [place] % (Auto) Eos % (Auto) Baso % (Auto) Absolute Neuts (auto) Absolute Lymphs (auto) Nucleated RBC % Sodium 140 Potassium 4.6 Chloride 108 H Carbon Dioxide 26.0 Anion Gap 6 BUN 22 H Creatinine 0.91 Estim Creat Clear Calc 55.46 Est GFR (MDRD) Af Amer 80 Est GFR (MDRD) Non-Af 66 BUN/Creatinine Ratio 24.2 H Glucose 119 H Calcium 8.6 Radiography Diagnostic Testing: Radiology Impression Chest X-Ray 09/11/20 18:08 IMPRESSION: No acute radiographic abnormalities. Electronically Signed: Dhaval Park MD at 18:28 EDT Tel , Service support , D/C Instructions Discharge Diet: No restrictions Discharge Activity: Return to Normal Activity Call your doctor if you observe: Fever of 101 or Higher, Shortness of breath, Fainting spells and Chest pain Meaningful Use Info Meaningful Use Diagnoses (Choose all that apply): None applicable Discharge Plan Admission Admit Date/Time: 09/11/20 18:39 Attending Provider: Asher Durant Primary Care Provider: Fausto Thibodeaux III Discharge Orders/Prescriptions Prescriptions: Continued duloxetine 60 MG capsule,delayed release(DR/EC) 60 mg PO DAILY RF: 0 atorvastatin 80 mg tablet 80 mg PO DAILY RF: 0 amiodarone 200 mg tablet 200 mg PO DAILY RF: 0 valacyclovir 1 gram tablet 1,000 mg PO TID RF: 0 acetaminophen [Tylenol Extra Strength] 500 mg Tablet 1,000 mg PO Q4H PRN (Reason: Pain) RF: 0 pantoprazole 40 mg tablet,delayed release (DR/EC) 40 mg PO DAILY RF: 0 diphenhydramine HCl [Benadryl Allergy] 25 mg Tablet 25 mg PO TID PRN (Reason: Itching) RF: 0 Xarelto 20 mg tablet 20 mg PO DAILY RF: 0 Referrals / Follow Up: Fausto Thibodeaux III, MD [Primary Care Provider] - In 1 Week Disposition Disposition (needs filled in before D/C Order can be placed): Home, self care Visit Charges OBSV E&M: 99163 Observation care discharge
--- NOTE | 2020-09-12 10:13 | PCM.DC ---
Discharge Instructions Diet Discharge Diet: No restrictions Activity Discharge Activity: Return to Normal Activity Dressing / Incision Call your doctor if you observe: Fever of 101 or Higher, Shortness of breath, Fainting spells and Chest pain Follow Up Care Test Results: Test results from this visit will be discussed in further detail at your follow-up appointment, if applicable. Discharge Plan Admission Admit Date/Time: 09/11/20 18:39 Attending Provider: Asher Durant Primary Care Provider: Fausto Thibodeaux III Discharge Orders/Prescriptions Prescriptions: Continued duloxetine 60 MG capsule,delayed release(DR/EC) 60 mg PO DAILY RF: 0 atorvastatin 80 mg tablet 80 mg PO DAILY RF: 0 amiodarone 200 mg tablet 200 mg PO DAILY RF: 0 valacyclovir 1 gram tablet 1,000 mg PO TID RF: 0 acetaminophen [Tylenol Extra Strength] 500 mg Tablet 1,000 mg PO Q4H PRN (Reason: Pain) RF: 0 pantoprazole 40 mg tablet,delayed release (DR/EC) 40 mg PO DAILY RF: 0 diphenhydramine HCl [Benadryl Allergy] 25 mg Tablet 25 mg PO TID PRN (Reason: Itching) RF: 0 Xarelto 20 mg tablet 20 mg PO DAILY RF: 0 Referrals / Follow Up: Fausto Thibodeaux III, MD [Primary Care Provider] - In 1 Week Disposition Disposition (needs filled in before D/C Order can be placed): Home, self care
--- NOTE | 2020-09-12 10:40 | CASEMGMT ---
ALFREDO COLEMAN NOTE: Pt in isolation precautions. Call placed to pt to discuss discharge planning. Pt states she lives alone and has 16 steps to enter into her home. She wishes to d/c home. Pt states she was weak yesterday and had concerns w/getting into her home, but states she is feeling better now and stronger and denies having concerns w/going home or w/being able to get into her home. She states her friend is taking her home @ discharge and can help her get into her home if needed. She denies need for HHC or OP therapy. She states, since the amputation of her left arm, it has been difficult to do some things in the home, but states I manage. She states her friends are supportive and are able to help as needed. Pt states she does not have any living relatives. She states she does not have LW or HCPOA .? She is interested in more information but states does not want to talk with SW at this time to complete paperwork.? She was made aware information on advanced directives and Social Service rac card with number to call if chooses in the future to utilize [facility] social work for advanced directive completion will be provided to her by RN. This info was given to ALFREDO Danielle, who states she will give to pt. Pt states she was prescribed a new medication yesterday for the shingles, prior to coming to the hospital, and she plans to pick that up at [facility] today after d/c. She asked if ALFREDO COLEMAN could call [facility] for her to check to see how many prescriptions she has waiting for her. ALFREDO COLEMAN call [facility] and spoke w/pharmacist. Valtrex rx is ready for pick-up and cost is $0.86. Pt made aware. She denies having any concerns w/going home @ discharge. Bhargavi CASTILLO CM
[2020-09-12] MEDS: 0.9% Saline Lock 10 ML Syringe IV (11:14)
[2020-09-12] MEDS: oxyCODONE 5 MG Tablet PO (11:18)
== END 2020-09-12 10:14 | disposition home or self-care (01) ==
LOC: ED 17:48 → PCU 19:03
PROVIDERS: Admitting Provider Student in an Organized Health Care Education/Training Program; Emergency Provider Emergency Medicine; PCP Family Medicine; Visit Provider Internal Medicine
DX: R55 Syncope and collapse (principal); B02.9 Zoster without complications; R53.1 Weakness; I10 Essential (primary) hypertension; G89.29 Other chronic pain; F17.200 Nicotine dependence, unspecified, uncomplicated; M06.9 Rheumatoid arthritis, unspecified; K21.9 Gastro-esophageal reflux disease without esophagitis; Z79.899 Other long term (current) drug therapy; Z79.01 Long term (current) use of anticoagulants; Z86.718 Personal history of other venous thrombosis and embolism; Z89.222 Acquired absence of left upper limb above elbow; I48.0 Paroxysmal atrial fibrillation
CPT/HCPCS: 36415; 71045; 80048; 85025; 93005; 96361; 96374; 96375; 97162; 97166; 99218; 99285; J7030; A4216; G0378; J2405

== ENCOUNTER → 2021-01-06 15:51 | Outpatient (CLI) | payer MEDICARE, SELFPAY ==
--- NOTE | 2021-01-06 | FLU_PTH ---
PATIENT: PHONG JACKSON LOC: [facility] U#:[id number] AGE/SX: 69/F ROOM: RE01/06/[address]: Dr. Kika Cordon MD : 1955 BED: DIS: SPEC #: [id number] RECD: 01/07/21 15:00 STATUS: [place] MAE #: [id number] RUKHSANA: 01/06/21 00:[address]: Kika Cordon DEPT: CYTOLOGY RECD BY: Luba Rivas ENTERED: 01/08/21 11:48 SP TYPE: Fluid OTHR DR: MD Dr. Clementine Kimbrough III, MD Dr. Mark Elderbrock, MD Tissues: A - Thyroid gland, NOS B - Thyroid gland, NOS C - Thyroid gland, NOS D - Thyroid gland, NOS Procedures: Special Stain Group II Surgery Specimen Level IV Cytospin Fluid Cytology Other HEADER OPERATION: Fine needle aspiration bilateral thyroid PRE-OP DIAGNOSIS: Bilateral thyroid nodules TISSUE SUBMITTED: A - FNA right thyroid nodule fluid, B - FNA right thyroid x6 slides, C - FNA left thyroid nodule fluid, D - FNA left thyroid x6 slides DIAGNOSIS CYTOLOGY A. Fine needle aspiration, right thyroid nodule fluid (cytospin and cell block): Negative for malignant cells. B. Fine needle aspiration, right thyroid nodule (smears): Adequate for evaluation. Negative, consistent with benign follicular/colloid nodule. C. Fine needle aspiration, left thyroid nodule fluid (cytospin and cell block): Adequate for evaluation. Negative, consistent with benign follicular nodule with cystic change. D. Fine needle aspiration, left thyroid nodule (smears): Adequate for evaluation. Negative, consistent with benign follicular/colloid nodule. AM:rani 01/11/2021 CYTOLOGY STUDY Slides are reviewed. CYTOLOGY GROSS A - Received is 35 ml of cloudy light brown fluid labeled with the patient's name and and designated per the requisition as right thyroid. Submitted for cytology preparation including cell block. B - Received are 6 smears labeled with the patient's name and designated per the requisition as right thyroid. Submitted for staining. C - Received is 35 ml of cloudy brown fluid labeled with the patient's name and and designated per the requisition as left thyroid. Submitted for cytology preparation including cell block. D - Received are 4 smears labeled with the patient's name and designated per the requisition as left thyroid. Submitted for staining. / rani 01/08/2021 TC:5 CPT: 07069 x2, 83991 x2, 64022 x2
== END ==
PROVIDERS: PCP Family Medicine; Referring Provider Surgery; Visit Provider Surgery
DX: E04.1 Nontoxic single thyroid nodule (principal)
CPT/HCPCS: 88108; 88161; 88305; 88313

== ENCOUNTER → 2021-04-12 14:38 | Outpatient (CLI) | payer MEDICARE, SELFPAY ==
[2021-04-15 05:07] LABS: QNTFERON TB Mitogen Value 3.49 IU/mL (.); QNTFERON TB Nil Value 0 IU/mL (.); QNTFERON TB1+ Ag Value 0.02 IU/mL (.); QNTFERON TB2+ Ag Value 0.05 IU/mL (.)
[2021-04-15 13:15] LABS: QNTIFERON TB Positive Criteria Negative (Negative)
== END ==
PROVIDERS: PCP Family Medicine; Referring Provider Dermatology Pediatric Dermatology; Visit Provider Dermatology Pediatric Dermatology
DX: L30.9 Dermatitis, unspecified (principal); S30.92XA Unspecified superficial injury of abdominal wall, initial encounter; L28.0 Lichen simplex chronicus; Z79.899 Other long term (current) drug therapy
CPT/HCPCS: 36415; 86480

== ENCOUNTER 2021-04-27 13:13 | Emergency (ER) | payer MEDICARE, SELFPAY ==
[2021-04-27 13:14] VITALS: BP 133/96; PULSE 16; RESP 20; TEMP 36.4; O2SAT 94; BMI 29.9
--- NOTE | 2021-04-27 13:28 | EKG12_ITS ---
Test Reason : CP Blood Pressure : / mmHG Vent. Rate : 090 BPM Atrial Rate : 090 BPM P-R Int : 156 ms QRS Dur : 070 ms QT Int : 354 ms P-R-T Axes : 049 041 065 degrees QTc Int : 433 ms Normal sinus rhythm Normal ECG Confirmed by BE AHMADI MD ([id number]), newspaper or periodical editor ALEXEY IRVING ([id number]) on 05/05/2021 10:42:47 AM Referred By: ANAMARIA Confirmed By:BE AHMADI MD
--- NOTE | 2021-04-27 13:37 | RAD_ITS ---
STUDY: X-RAY CHEST REASON FOR EXAM: Female, 65 years old. SOB TECHNIQUE: Single AP portable view of the chest. COMPARISON: Comparison is made with prior study dated 09/11/2020. FINDINGS: There is hyperinflation of the lungs consistent with chronic obstructive lung disease (COPD). There is no demonstrated pleural abnormality. Normal size heart. Normal mediastinum and doug. Normal visualized pulmonary arteries. There is atherosclerotic calcification of the aortic arch with tortuosity. There are diffuse degenerative changes of the visualized thoracic spine. Mild dextroscoliosis. Normal visualized ribs, clavicles, and shoulders. There is no demonstrated abnormality of the visualized soft tissue structures of the upper abdomen. RAD/Chest 1 View (Portable) IMPRESSION: Hyperinflation. Stable mild scarring at the lung bases. Electronically Signed: Chestre Coello MD at 15:09 EST , Service support ,
--- NOTE | 2021-04-27 15:47 | ED.VIS.DYS ---
HPI History of Present Illness Chief Complaint: Shortness of Breath Informant: patient Narrative Narrative: 65-year-old female states that she was sitting on her couch when she suddenly got a sensation that she could not catch her breath. She said that she felt fatigued. She called a clinic hotline they stated that they could hear her wheezing and suggested that she come to emergency. Patient states that since arriving here she is feeling better. Patient stated that when she arrived here she felt some discomfort around her heart. 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 She is on Xarelto and states that she has not missed any doses. She notes that while she was in the hospital last year she had atrial fibrillation but reportedly has not had any symptoms of that recently. Patient denies any motor or sensory changes. [facility] Medical History Amputation of left arm Anxiety Atrial fibrillation Chronic pain Chronic pain DVT (deep venous thrombosis) GERD (gastroesophageal reflux disease) Hypertension Kidney stones Rheumatoid arthritis Smoker Stroke/cerebrovascular accident Transient hypotension Home Medications duloxetine 60 mg PO DAILY 10/30/17 [History Last Taken 09/10/20] Xarelto 20 mg PO DAILY 09/11/20 [History Last Taken 09/10/20] acetaminophen [Tylenol Extra Strength] 1,000 mg PO Q4H PRN 09/11/20 [History Last Taken 09/11/20] amiodarone 200 mg PO DAILY 09/11/20 [History Last Taken 09/10/20] atorvastatin 80 mg PO DAILY 09/11/20 [History Last Taken 09/10/20] diphenhydramine HCl [Benadryl Allergy] 25 mg PO TID PRN 09/11/20 [History Last Taken 09/11/20] pantoprazole 40 mg PO DAILY 09/11/20 [History Last Taken 09/10/20] valacyclovir 1,000 mg PO TID 09/11/20 [History Last Taken Unknown] Allergy/AdvReac Type Severity Reaction Status Date / Time Penicillins [PCN] Allergy Rash Verified 04/27/21 13:16 sulfamethoxazole Allergy Rash Verified 04/27/21 13:16 [From Bactrim] trimethoprim [From Bactrim] Allergy Rash Verified 04/27/21 13:16 Family History Mother Heart disease Father Heart disease Sister Heart disease Brother Heart disease Surgical History Hx of colonoscopy Social History household members: none housing: house number of children: 0 Smoking Status: Current some day smoker tobacco type: cigarettes ROS ROS ED Constitutional Constitutional ED: Reports fever(s); Denies chills or weight loss Eyes Eyes: Denies change in vision or diplopia ENT ENT ED: Denies ear pain, rhinorrhea or sore throat Cardiovascular Cardiovascular: Reports chest pain; Denies orthopnea, palpitations or racing heartbeat Respiratory/Chest Respiratory/Chest: Reports dyspnea; Denies cough or orthopnea Gastrointestinal Gastrointestinal: Denies abdominal pain, diarrhea, nausea or vomiting Genitourinary Genitourinary ED: Denies dysuria, hematuria or urinary frequency Musculoskeletal Musculoskeletal: Denies arthralgias or myalgias Integumentary Denies abscess or rash Neurologic Neurologic: Denies headache(s) or weakness Psychiatric Psychiatric: Denies anxiety, depression, suicidal ideation or suicidal thoughts Endocrine Endocrinology: Denies polydipsia, polyphagia or polyuria Allergic/Immunologic Allergic/Immunologic ED: Denies mouth swelling, tongue swelling or urticaria EXAM Physical Exam Const Vital Signs: 04/27/21 13:14 04/27/21 16:08 04/27/21 16:11 Temperature 97.5 F L Temperature Source Temporal Pulse Rate 16 L 76 Respiratory Rate 20 H 24 H Respiratory Effort Normal Respiratory Depth Normal Respiratory Pattern Normal Blood Pressure 133/96 H 112/88 H Blood Pressure Mean 108 96 Pulse Ox 94 96 96 Oxygen Delivery Method Room Air Room Air Room Air 04/27/21 18:28 Temperature Temperature Source Pulse Rate 76 Respiratory Rate 21 H Respiratory Effort Respiratory Depth Respiratory Pattern Blood Pressure Blood Pressure Mean Pulse Ox 98 Oxygen Delivery Method Room Air Positive well nourished and well developed General Appearance ED: well developed HEENT Reports normocephalic, head/scalp atraumatic, TM's clear and moist mucous membranes atraumatic Tympanic Membrane ED: Yes TM's clear Eyes PERRL and EOMs intact bilaterally Neck no lymphadenopathy, supple and no JVD Resp normal respiratory effort and clear to auscultation bilaterally Cardio regular rate, regular rhythm and no murmurs GI normal to inspection, nondistended, normoactive bowel sounds, non-tender and no masses Auscultation: normoactive bowel sounds Palpation: soft Back/Spine no CVA tenderness and normal ROM Extremity normal to inspection General Extremety ED: Negative for edema General Extremity: Negative for edema Neuro oriented x3 and CN's II-XII intact bilaterally Sensorium / Orientation: alert Motor Exam: strength 5/5 throughout Psych Mood & Affect: anxious; Negative for depressed or tearful Skin no rashes or lesions noted and no wounds MDM MDM MDM Narrative Medical decision making narrative: My interpretation of the chest x-ray is no acute process. Basic blood work is normal including troponin. She has remained asymptomatic in the room and on the monitor. I do not think we need to pursue pulmonary embolism as she is on Xarelto and has not missed any doses. Patient would like to see about seeing a [facility] tax accountant. I can make the referral to Dr. García who is on-call today. Patient is comfortable going home and I am also. Lab Data Attestation: I reviewed the patient's lab results. Labs: Laboratory Results - last 24 hr 04/27/21 04/27/21 04/27/21 15:42 15:42 15:42 WBC 6.3 RBC 4.40 Hgb 14.2 Hct 43.6 MCV 99.1 H MCH 32.3 H MCHC 32.6 RDW Std Deviation 50.5 H RDW Coeff of [place] 13.8 Plt Count 285 MPV 10.5 Immature Gran % (Auto) 0.200 Neut % (Auto) 65.7 Lymph % (Auto) 19.8 [place] % (Auto) 8.2 Eos % (Auto) 5.5 H Baso % (Auto) 0.6 Absolute Neuts (auto) 4.2 Absolute Lymphs (auto) 1.25 Nucleated RBC % 0 Sodium 140 Potassium 4.3 Chloride 102 Carbon Dioxide 31.0 Anion Gap 7 BUN 21 H Creatinine 1.05 H Estim Creat Clear Calc 48.07 Est GFR (MDRD) Af Amer 67 Est GFR (MDRD) Non-Af 56 L BUN/Creatinine Ratio 20.0 Glucose 96 Calcium 9.7 Troponin I High Sens 10 Radiography Diagnostic Testing: Clinical Impression(s) from Imaging Studies Chest X-Ray 04/27/21 13:37 IMPRESSION: Hyperinflation. Stable mild scarring at the lung bases. Electronically Signed: Chester Coello MD at 15:09 EST , Service support , EKG Initial EKG: Attestation: I personally reviewed and interpreted this EKG as follows: Comments: Normal sinus rhythm with a ventricular rate of 90 bpm Discharge Plan Triage Chief Complaint: Shortness of Breath ED Provider: Anup Hill Dx/Rx/DC Orders Clinical Impression: Acute dyspnea Instructions: ED Dyspnea Prescriptions: No Action duloxetine 60 MG capsule,delayed release(DR/EC) 60 mg PO DAILY RF: 0 atorvastatin 80 mg tablet 80 mg PO DAILY RF: 0 amiodarone 200 mg tablet 200 mg PO DAILY RF: 0 valacyclovir 1 gram tablet 1,000 mg PO TID RF: 0 acetaminophen [Tylenol Extra Strength] 500 mg Tablet 1,000 mg PO Q4H PRN (Reason: Pain) RF: 0 pantoprazole 40 mg tablet,delayed release (DR/EC) 40 mg PO DAILY RF: 0 diphenhydramine HCl [Benadryl Allergy] 25 mg Tablet 25 mg PO TID PRN (Reason: Itching) RF: 0 Xarelto 20 mg tablet 20 mg PO DAILY RF: 0 Primary Care Provider: Juan Alberto Referrals: Juan Alberto MD [Primary Care Provider] - As Needed Sudhakar García MD [STAFF PHYSICIAN] - As Needed (For [facility] cardiology) Disposition Disposition: Home, Self Care
[2021-04-27 16:08] VITALS: BP 112/88; PULSE 76; RESP 24; O2SAT 96
[2021-04-27 16:11] VITALS: O2SAT 96
[2021-04-27 16:22] LABS: Absolute Lymphocyte Count 1.25 X10^3/uL (0.83-4.51); Absolute Neutrophil Count 4.2 X10^3/uL (2.0-7.7); Basophil# 0.04 X10^3/uL; Basophil% 0.6 % (0-1); Eosinophil# 0.35 X10^3/uL; Eosinophils% 5.5 % (0-5); Hematocrit 43.6 % (37-47); Hemoglobin 14.2 g/dL (12.0-15.0); Lymphocyte # 1.25 X10^3/ul (0.83-4.51); Lymphocyte % 19.8 % (19-41); Mean Corp Hgb Conc 32.6 g/dL (32-36); Mean Corpuscular Hgb 32.3 pg (27.0-32.0); Mean Corpuscular Volume 99.1 fL (81-99); Mean Platelet Vol. 10.5 fl (6.2-12.0); Monocyte# 0.52 X10^3/uL; Monocyte% 8.2 % (0-10); NRBC Flagged by Analyzer 0 % (0-5); Neutrophil # 4.15 X10^3/uL (2.7-7.7); Neutrophil % 65.7 % (47-70); Platelet Count 285 K/mm3 (150-450); RBC Distribution Width CV 13.8 % (11.6-14.6); RBC Distribution Width SD 50.5 fl (35.1-43.9); White Blood Count 6.3 K/mm3 (4.4-11.0)
[2021-04-27 16:37] LABS: Anion Gap 7 (5-15); BUN 21 mg/dL (7-18); Calcium,Total 9.7 mg/dL (8.5-10.1); Chloride 102 mmol/L (98-107); Creatinine, Serum 1.05 mg/dL (0.55-1.02); EST Glomerular Filtration Rate 56 mL/min (>60); Est Glom Filt Rate - Afr Amer 67 mL/min (>60); Estimated Creatinine Clearance 48.07 ml/min; Glucose 96 mg/dL (74-106); Potassium 4.3 mmol/L (3.5-5.1); Sodium Level 140 mmol/L (136-145)
[2021-04-27 16:57] LABS: Troponin-I HS 10 pg/mL (3.0-54.0)
[2021-04-27 18:28] VITALS: PULSE 76; RESP 21; O2SAT 98
== END 2021-04-27 18:52 | disposition home or self-care (01) ==
PROVIDERS: Emergency Provider Emergency Medicine; PCP Family Medicine; Visit Provider Emergency Medicine
DX: R06.02 Shortness of breath (principal); M06.9 Rheumatoid arthritis, unspecified; I48.91 Unspecified atrial fibrillation; I10 Essential (primary) hypertension; K21.9 Gastro-esophageal reflux disease without esophagitis; F17.210 Nicotine dependence, cigarettes, uncomplicated; Z79.01 Long term (current) use of anticoagulants; Z79.899 Other long term (current) drug therapy; Z86.718 Personal history of other venous thrombosis and embolism; Z86.73 Personal history of transient ischemic attack (TIA), and cerebral infarction without residual deficits
CPT/HCPCS: 71045; 80048; 84484; 85025; 87426; 93005; 99282

== ENCOUNTER 2022-01-31 17:16 | Observation (INO) | payer MEDICARE, MEDICAID, SELFPAY ==
[2022-01-31 17:17] VITALS: BP 143/123; PULSE 109; RESP 22; TEMP 36.6; O2SAT 98; BMI 30.4
--- NOTE | 2022-01-31 17:42 | EX.ED.DYSGE1 ---
HPI History of Present Illness Chief Complaint: Weakness Informant: patient Narrative Narrative: Patient presents via EMS after her neighbor called the squad. Patient states that she has been generally weak since having a stroke and her left arm amputated. She states she is able to get up and around for about 5 minutes at a time and then has to sit and rest. Her neighbor came over today and called EMS thinking that her alertness was altered. Patient states that she feels okay. She does report a fall earlier today where she tripped going up the steps into her home. She did not strike her head or lose consciousness. She is concerned that she is dehydrated. [facility] Medical History (Updated 01/31/22 @ 21:[address] Ana Aranda MD) Amputation of left arm Anxiety Atrial fibrillation Chronic pain DVT (deep venous thrombosis) GERD (gastroesophageal reflux disease) Hypertension Kidney stones Psoriasis Rheumatoid arthritis Smoker Stroke/cerebrovascular accident Transient hypotension Home Medications duloxetine 60 mg capsule,delayed release 60 mg PO DAILY 10/30/17 [History Last Taken 09/10/20] acetaminophen 500 mg tablet (Tylenol Extra Strength) 1,000 mg PO Q4H PRN Pain 09/11/20 [History Last Taken 09/11/20] amiodarone 200 mg tablet 200 mg PO DAILY AFIB 09/11/20 [History Last Taken 09/10/20] atorvastatin 80 mg tablet 80 mg PO DAILY CHOLESTEROL 09/11/20 [History Last Taken 09/10/20] diphenhydramine HCl 25 mg tablet (Benadryl Allergy) 25 mg PO TID PRN Itching 09/11/20 [History Last Taken 09/11/20] pantoprazole 40 mg tablet,delayed release 40 mg PO DAILY GERD 09/11/20 [History Last Taken 09/10/20] rivaroxaban 20 mg tablet (Xarelto) 20 mg PO DAILY BLOOD THINNER 09/11/20 [History Last Taken 09/10/20] valacyclovir 1 gram tablet 1,000 mg PO TID SHINGLES 09/11/20 [History Last Taken Unknown] Allergy/AdvReac Type Severity Reaction Status Date / Time Penicillins [PCN] Allergy Rash Verified 04/27/21 13:16 sulfamethoxazole Allergy Rash Verified 04/27/21 13:16 [From Bactrim] trimethoprim [From Bactrim] Allergy Rash Verified 04/27/21 13:16 Family History Mother Heart disease Father Heart disease Sister Heart disease Brother Heart disease Surgical History Hx of colonoscopy Social History household members: none housing: house number of children: 0 Smoking Status: Current some day smoker tobacco type: cigarettes ROS ROS ED Constitutional Constitutional ED: Denies chills or fever(s) Eyes Eyes: Denies change in vision or discharge from eye(s) ENT ENT ED: Denies discharge from eye(s), rhinorrhea or sore throat Cardiovascular Cardiovascular: Denies chest pain or palpitations Respiratory/Chest Respiratory/Chest: Denies cough or dyspnea Gastrointestinal Gastrointestinal: Denies abdominal pain, diarrhea, nausea or vomiting Genitourinary Genitourinary ED: Denies difficulty urinating or dysuria Musculoskeletal Musculoskeletal: Denies back pain or extremity pain Integumentary Reports rash; Denies Abrasions Neurologic Neurologic: Reports weakness; Denies headache(s) Psychiatric Psychiatric: Denies anxiety or depression Allergic/Immunologic Allergic/Immunologic ED: Denies lip swelling or urticaria EXAM Physical Exam Const Vital Signs: 01/31/22 17:17 01/31/22 18:37 Temperature 97.8 F Temperature Source Temporal Pulse Rate 109 H 102 H Respiratory Rate 22 H 16 Blood Pressure 143/123 H 124/81 H Blood Pressure Mean 129 95 Pulse Ox 98 97 Oxygen Delivery Method Room Air Room Air Positive well nourished and well developed General Appearance ED: well developed HEENT Reports normocephalic, head/scalp atraumatic and dry mucous membranes Mouth ED: Yes dry mucous membranes Mouth: dry mucous membranes Eyes PERRL and EOMs intact bilaterally Neck supple Chest Wall inspection of chest normal and palpation of chest normal Resp normal respiratory effort and clear to auscultation bilaterally Cardio regular rhythm Rate: tachycardic GI non-tender Auscultation: hypoactive bowel sounds Palpation: soft Extremity Extremity Narrative: Left upper extremity amputation. Neuro oriented x3 and no sensory deficits noted Neuro Narrative: No focal neurologic deficits. Sensorium / Orientation: alert Motor Exam: strength 5/5 throughout Psych mental status grossly normal Skin Skin Narrative: Patient with psoriasis with erythematous dry skin noted over the upper trunk and extremities. Some erythema noted to the lower extremities as well. No sign of secondary infection at this time. MDM MDM MDM Narrative Medical decision making narrative: Patient given IV fluids. Lab work and urinalysis obtained. As notified by nursing staff that the patient had evidence of bedbugs. Lab Data Attestation: I reviewed the patient's lab results. Labs: Laboratory Results - last 24 hr 01/31/22 01/31/22 01/31/22 17:53 17:53 18:15 WBC 8.9 RBC 3.63 L Hgb 10.8 L Hct 35.6 L MCV 98.1 MCH 29.8 MCHC 30.3 L RDW Std Deviation 52.8 H RDW Coeff of Nisha 14.7 H Plt Count 392 MPV 10.0 Immature Gran % (Auto) 0.300 Neut % (Auto) 76.2 H Lymph % (Auto) 13.6 L [place] % (Auto) 5.5 Eos % (Auto) 4.1 Baso % (Auto) 0.3 Absolute Neuts (auto) 6.7 Absolute Lymphs (auto) 1.20 Nucleated RBC % 0 Sodium 142 Potassium 3.8 Chloride 106 Carbon Dioxide 27.0 Anion Gap 9 BUN 13 Creatinine 1.48 H Estim Creat Clear Calc 35.00 Est GFR (MDRD) Af Amer 45 L Est GFR (MDRD) Non-Af 37 L BUN/Creatinine Ratio 8.8 L Glucose 79 Calcium 9.0 Total Bilirubin 0.30 Direct Bilirubin 0.14 AST 34 ALT 25 Alkaline Phosphatase 113 Total Protein 8.1 Albumin 2.5 L Globulin 5.6 H Urine Color Yellow Urine Clarity Sl. Cloudy Urine pH 5.0 Ur Specific [place] 1.025 Urine Protein 30 H Urine Glucose (UA) Normal Urine Ketones 5 H Urine Occult Blood Negative Urine Nitrite Negative Urine Bilirubin 1 H Urine Urobilinogen Normal Ur Leukocyte Esterase 25 H Urine RBC 0 SEEN Urine WBC 5-10 SEEN Ur Squamous Epith Cells 0 SEEN Urine Bacteria 1+ Hyaline Casts 25-50 SEEN Fine Granular Casts 0-5 SEEN WBC Casts 0-5 SEEN Urine Mucus 0 SEEN Treatment and Re-Evaluation Narrative: CBC largely unremarkable. Hemoglobin slightly low at 10.8. Chemistry studies reveal a creatinine of 1.48. She has been as high as 2.2 in the past and is low at 0.9. Urinalysis reveals hyaline cast but no sign of acute infection. On repeat evaluation patient resting company. I did have social work speak with her regarding possible services that she may benefit from. She does not want anyone else coming into her home. I did speak with her about rehab and strengthening as she has been very weak. She is interested in this. I will speak with the hospitalist to have her admitted for physical therapy evaluation. Discharge Plan Triage Chief Complaint: Weakness ED Provider: Ana Aranda Dx/Rx/DC Orders Clinical Impression: Weakness, Dehydration, Psoriasis, Falls Prescriptions: No Action duloxetine 60 MG capsule,delayed release(DR/EC) 60 mg PO DAILY atorvastatin 80 mg tablet 80 mg PO DAILY Label Comments: Take 1 tablet by mouth once daily. amiodarone 200 mg tablet 200 mg PO DAILY Label Comments: Take 1 tablet by mouth once daily. valacyclovir 1 gram tablet 1,000 mg PO TID acetaminophen [Tylenol Extra Strength] 500 mg Tablet 1,000 mg PO Q4H PRN (Reason: Pain) pantoprazole 40 mg tablet,delayed release (DR/EC) 40 mg PO DAILY Label Comments: Take 1 tablet by mouth once daily. diphenhydramine HCl [Benadryl Allergy] 25 mg Tablet 25 mg PO TID PRN (Reason: Itching) Xarelto 20 mg tablet 20 mg PO DAILY Label Comments: Take 1 tablet by mouth once daily. Primary Care Provider: Juan Alberto Referrals: Juan Alberto MD [Primary Care Provider] - Disposition Disposition: Acute Care Hospital [facility]
[2022-01-31] MEDS: 0.9% Normal Saline 1,000 ML 1000 ML IV (17:55)
[2022-01-31 18:04] LABS: Absolute Neutrophil Count 6.7 X10^3/uL (2.0-7.7); Basophil# 0.03 X10^3/uL; Basophil% 0.3 % (0-1); Eosinophil# 0.36 X10^3/uL; Eosinophils% 4.1 % (0-5); Hematocrit 35.6 % (37-47); Hemoglobin 10.8 g/dL (12.0-15.0); Lymphocyte % 13.6 % (19-41); Mean Corp Hgb Conc 30.3 g/dL (32-36); Mean Corpuscular Hgb 29.8 pg (27.0-32.0); Mean Corpuscular Volume 98.1 fL (81-99); Monocyte# 0.49 X10^3/uL; Monocyte% 5.5 % (0-10); NRBC Flagged by Analyzer 0 % (0-5); Neutrophil # 6.74 X10^3/uL (2.7-7.7); Neutrophil % 76.2 % (47-70); Platelet Count 392 K/mm3 (150-450); RBC Distribution Width CV 14.7 % (11.6-14.6); RBC Distribution Width SD 52.8 fl (35.1-43.9); Red Blood Count 3.63 M/mm3 (4.2-5.4); White Blood Count 8.9 K/mm3 (4.4-11.0)
[2022-01-31 18:25] LABS: Color, Urine Yellow (Yellow); Glucose, Dipstick Normal (Normal); Ketone-Dipstick 5 mg/dl (Negative); Leukocyte Esterase-Dipstick 25 /ul (Negative); Mucous, Urine 0 SEEN /hpf (<or=2+); Nitrite-Dipstick Negative (Negative); Occult Blood-Urine Negative /ul (Negative); Protein-Dipstick 30 mg/dl (Negative); Red Blood Cells-Urine 0 SEEN /hpf (0-5); Specific Gravity, Urine 1.025 (1.002-1.030); Squamous Epithelial Cells - UA 0 SEEN /hpf (5-10); Urine Clarity Sl. Cloudy (Clear); Urine Urobilinogen Normal (Normal)
[2022-01-31 18:26] LABS: Urine Bilirubin Dipstick 1 mg/dL (Negative)
[2022-01-31 18:26] LABS: AST(SGOT) 34 U/L (15-37); Alanine Aminotransfer ALT/SGPT 25 U/L (13-56); Albumin, Serum 2.5 g/dL (3.2-5.0); Alkaline Phosphatase 113 U/L (45-117); Anion Gap 9 (5-15); BUN 13 mg/dL (7-18); BUN/Creat Ratio 8.8 RATIO (10-20); Bilirubin, Direct 0.14 mg/dL (0.00-0.30); Chloride 106 mmol/L (98-107); Creatinine, Serum 1.48 mg/dL (0.55-1.02); EST Glomerular Filtration Rate 37 mL/min (>60); Est Glom Filt Rate - Afr Amer 45 mL/min (>60); Globulin 5.6 g/dL (2.2-4.2); Glucose 79 mg/dL (74-106); Potassium 3.8 mmol/L (3.5-5.1); Protein, Total 8.1 g/dL (6.4-8.2); Sodium Level 142 mmol/L (136-145)
[2022-01-31 18:32] LABS: Fine Granular Cast- Urine 0-5 SEEN /lpf (0-5); Hyaline Cast 25-50 SEEN /lpf (0-5); White Cell Cast 0-5 SEEN /lpf (None Seen)
[2022-01-31 18:34] LABS: Bacteria 1+ /hpf (None Seen); White Blood Cells 5-10 SEEN /hpf (0-5)
[2022-01-31 18:37] VITALS: BP 124/81; PULSE 102; RESP 16; O2SAT 97
--- NOTE | 2022-01-31 19:27 | ED.RN ---
friend, Ursula called in to let pt know she took care of pt's dog. [phone].
[2022-01-31] MEDS: 0.9% Normal Saline 1,000 ML 150 ML IV (19:36)
--- NOTE | 2022-01-31 20:01 | CM.ED ---
SW Note Referral Source: MD Referral Reason: Resource MD Aranda requested that this telegraphic typewriter installer speak to patient regarding support in the home. SW met with patient and introduced herself. Patient was very apprehension to talk to this telegraphic typewriter installer however, after awhile stated that she is upset as she has bed bugs. Patient said that she has had the house treated for bed bugs 2 times in the past, one time costing her$750 and another time costing her$1700 and now the bed bugs are back again. Patient said that she has had them for 2 years. Patient said that her friends won't come to her house or transport her due to her bugs. Patient said that she plans to get a new company to take care of the bed bugs when she feels better. SW discussed [employer] [facility] [employer] [facility] and patient declined any referrals or brochure information. Patient was tearful and SW discussed how at times it is helpful to talk to someone and patient said I am talking to you now. Patient said that she will be fine when she gets the bed bug situation resolved. Patient declined any resource information. SW updated MD. SW remains available if needs arise. Plan: Resources and referrals declined by patient. Megan BUCIO
[2022-01-31 21:04] VITALS: BP 149/80; PULSE 105; RESP 16; O2SAT 94
--- NOTE | 2022-01-31 21:18 | PCM.HP.STD ---
HPI - General General Date of Admission: 01/31/22 Date of Service: 01/31/22 Chief Complaint: Generalized weakness HPI Narrative PHONG JACKSON, is a 66 F who presents to the emergency room with chief complaint of generalized weakness. Patient has significant past medical history of stroke and left arm amputation. Patient denies any chest pain, shortness of breath or fevers or chills at this present time. She does have confusion and has been unable to care for herself well at home. If she takes 5 steps she becomes more confused and short of breath and has already had 1 fall earlier today but denies hitting her head or other trauma. Creatinine level is elevated from baseline indicating dehydration and acute kidney injury. The patient was also diagnosed with bedbugs and severe psoriasis in the emergency room. The patient will be admitted for hydration therapy and case management to assess safe discharge plan. [facility] Medical History (Updated 01/31/22 @ 21:[address] Ana Aranda MD) Amputation of left arm Anxiety Atrial fibrillation Chronic pain DVT (deep venous thrombosis) GERD (gastroesophageal reflux disease) Hypertension Kidney stones Psoriasis Rheumatoid arthritis Smoker Stroke/cerebrovascular accident Transient hypotension Home Medications duloxetine 60 mg capsule,delayed release 60 mg PO DAILY 10/30/17 [History Last Taken 09/10/20] acetaminophen 500 mg tablet (Tylenol Extra Strength) 1,000 mg PO Q4H PRN Pain 09/11/20 [History Last Taken 09/11/20] amiodarone 200 mg tablet 200 mg PO DAILY AFIB 09/11/20 [History Last Taken 09/10/20] atorvastatin 80 mg tablet 80 mg PO DAILY CHOLESTEROL 09/11/20 [History Last Taken 09/10/20] diphenhydramine HCl 25 mg tablet (Benadryl Allergy) 25 mg PO TID PRN Itching 09/11/20 [History Last Taken 09/11/20] pantoprazole 40 mg tablet,delayed release 40 mg PO DAILY GERD 09/11/20 [History Last Taken 09/10/20] rivaroxaban 20 mg tablet (Xarelto) 20 mg PO DAILY BLOOD THINNER 09/11/20 [History Last Taken 09/10/20] Allergy/AdvReac Type Severity Reaction Status Date / Time Penicillins [PCN] Allergy Rash Verified 04/27/21 13:16 sulfamethoxazole Allergy Rash Verified 04/27/21 13:16 [From Bactrim] trimethoprim [From Bactrim] Allergy Rash Verified 04/27/21 13:16 Family History Mother Heart disease Father Heart disease Sister Heart disease Brother Heart disease Surgical History Hx of colonoscopy Social History household members: none housing: house number of children: 0 Smoking Status: Current some day smoker tobacco type: cigarettes ROS Constitutional Constitutional: Denies chills or fever(s) Eyes Eyes: Denies change in vision ENT HEENT: Denies abnormal hearing Cardiovascular Cardiovascular: Denies chest pain Respiratory/Chest Respiratory/Chest: Denies cough Gastrointestinal Gastrointestinal: Denies abdominal pain Genitourinary Genitourinary: Denies dysuria Musculoskeletal Musculoskeletal: Reports muscle weakness; Denies back pain Neurologic Neurologic: Reports confusion Psychiatric Psychiatric: Reports anxiety and depression Vital Signs Vital Signs Vital Signs: 01/31/22 17:17 01/31/22 18:37 01/31/22 21:04 Temperature 97.8 F Temperature Source Temporal Pulse Rate 109 H 102 H 105 H Respiratory Rate 22 H 16 16 Blood Pressure 143/123 H 124/81 H 149/80 H Blood Pressure Mean 129 95 103 Pulse Ox 98 97 94 Oxygen Delivery Method Room Air Room Air Room Air Weight Weight: 188 lb 11.451 oz Body Mass Index (BMI) 30.4 Physical Exam Narrative Psoriasis noted on scalp and chest Const alert Orientation / Consciousness: confused HEENT normocephalic and head/scalp atraumatic Eyes PERRL Neck no lymphadenopathy Resp normal respiratory effort, normal air movement and clear to auscultation bilaterally Cardio regular rate, regular rhythm, S1 normal heart sound and S2 normal heart sound GI soft to palpation Extremity Extremity Narrative: Left arm amputated Skin General Skin Exam: no breakdown Neuro Speech: speech normal Motor Exam: general weakness Psych Mood & Affect: depressed Results Lab / Micro Data Result Diagrams: 01/31/22 17:53 01/31/22 17:53 Labs: Laboratory Results - last 24 hr 01/31/22 17:53: WBC 8.9, RBC 3.63 L, Hgb 10.8 L, Hct 35.6 L, MCV 98.1, MCH 29.8, MCHC 30.3 L, RDW Std Deviation 52.8 H, RDW Coeff of Nisha 14.7 H, Plt Count 392, MPV 10.0, Immature Gran % (Auto) 0.300, Neut % (Auto) 76.2 H, Lymph % (Auto) 13.6 L, [place] % (Auto) 5.5, Eos % (Auto) 4.1, Baso % (Auto) 0.3, Absolute Neuts (auto) 6.7, Absolute Lymphs (auto) 1.20, Nucleated RBC % 0 01/31/22 17:53: Sodium 142, Potassium 3.8, Chloride 106, Carbon Dioxide 27.0, Anion Gap 9, BUN 13, Creatinine 1.48 H, Estim Creat Clear Calc 35.00, Est GFR (MDRD) Af Amer 45 L, Est GFR (MDRD) Non-Af 37 L, BUN/Creatinine Ratio 8.8 L, Glucose 79, Calcium 9.0, Total Bilirubin 0.30, Direct Bilirubin 0.14, AST 34, ALT 25, Alkaline Phosphatase 113, Total Protein 8.1, Albumin 2.5 L, Globulin 5.6 H 01/31/22 18:15: Urine Color Yellow, Urine Clarity Sl. 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 Dehydration as above IV therapy and recheck BMP in the morning 3. DVT prophylaxis?low molecular weight heparin Charges/Coding Visit Charges Inpatient E&M: 70495 Init Hosp L3
[2022-01-31 21:39] VITALS: BP 149/80; PULSE 105; RESP 16; TEMP 36.6; O2SAT 94
[2022-01-31 22:51] VITALS: BMI 30.1
[2022-01-31 22:52] VITALS: BP 124/68; PULSE 93; RESP 16; TEMP 36.2; O2SAT 98
[2022-01-31] MEDS: 0.9% Saline Lock 10 ML Syringe IV (23:33)
[2022-01-31] MEDS: 0.9% Normal Saline 1,000 ML 125 ML IV (23:33)
[2022-01-31] MEDS: DULoxetine Hcl 60 MG Capsule PO (23:41)
[2022-01-31] MEDS: Rivaroxaban 20 MG Tablet PO (23:41)
[2022-01-31] MEDS: Amiodarone 200 MG Tablet PO (23:41)
[2022-01-31] MEDS: Pantoprazole Sodium 40 MG Tablet PO (23:41)
[2022-01-31] MEDS: DiphenhydrAMINE 25 MG Capsule PO (23:44)
[2022-02-01] MEDS: Nystatin Powder 15gm Bottle 1 APPLIC TOPICAL ×2 (04:48→22:05)
[2022-02-01] MEDS: 0.9% Normal Saline 1,000 ML 125 ML IV ×3 (04:50→22:02)
[2022-02-01 04:53] VITALS: BP 151/91; PULSE 97; RESP 18; TEMP 36.6; O2SAT 93
[2022-02-01 08:35] LABS: Anion Gap 6 (5-15); BUN 12 mg/dL (7-18); BUN/Creat Ratio 11.8 RATIO (10-20); Calcium,Total 7.9 mg/dL (8.5-10.1); Chloride 112 mmol/L (98-107); Creatinine, Serum 1.02 mg/dL (0.55-1.02); EST Glomerular Filtration Rate 58 mL/min (>60); Est Glom Filt Rate - Afr Amer 70 mL/min (>60); Estimated Creatinine Clearance 48.82 ml/min; Glucose 100 mg/dL (74-106); Potassium 3.4 mmol/L (3.5-5.1); Sodium Level 142 mmol/L (136-145)
[2022-02-01 09:20] VITALS: BP 142/69; PULSE 98; RESP 18; TEMP 36.6; O2SAT 97
[2022-02-01] MEDS: DiphenhydrAMINE 25 MG Capsule PO ×2 (09:24→22:03)
[2022-02-01] MEDS: Potassium Chloride Oral Tablet 20 MEQ 40 MEQ PO (10:38)
--- NOTE | 2022-02-01 11:40 | CASEMGMT ---
ALFREDO COLEMAN Face to Face with patient for initial transition planning/care coordination assessment. RN CM introduced self and role at [facility]. Patient lying in bed, alert and oriented. Patient willing to participate in assessment and is able to answer all questions appropriately. Care providers, pharmacy, and demographics verified. Patient wishes to discharge home, denies need for home health at this time. Patient states she has no further needs or concerns at this time. CM to follow for discharge planning needs that may arise. PCP: Remy Specialists: [place] neurologist; Flynn Warren Visual Display Associate, [facility] sports medicine specialist Preferred Pharmacy: [facility]; [facility] retail at discharge. Insurance: ANGÉLICA Sow Prescription Benefit: yes Living Will/HPOA: none LNOK: Friends Living Arrangements: Patient lives alone in 2 story home, patient has been sleeping on couch downstairs. Patient states she is independent at home. Transportation: self, public DME/HHC: patient states she has shower chair, cane, walker, and grab bars at home. Patient denies previous HHC or SNF Disposition Plan: Patient to discharge home with family support and follow-up plans in place. Ashley FISCHER, RN, CM
[2022-02-01 14:05] VITALS: BP 137/75; PULSE 90; RESP 18; TEMP 36.8; O2SAT 95
--- NOTE | 2022-02-01 15:11 | CASEMGMT ---
RN CM in to pt room to discuss dc planning. Pt is denying the need for HHC for therapy at this time. She is denying need for therapy as an outpt. Left a list of HHC providers including quality and resource use data and consistent with the patient?s preferred geographic region, medical needs, and insurance network were provided from the [facility] Guide should pt change her mind. Pt denies any homegoing needs.
[2022-02-01] MEDS: Gabapentin 300 MG Capsule PO (17:18)
--- NOTE | 2022-02-01 17:37 | PN.HOSP_ITS ---
Subjective Subjective DOS 02/01/22 CC: Itching Pt reports feeling weak still and reports itching from her psoriasis. Denies CP or SOB, no headache or changes in vision. Does have phantom pain in right arm and wanted to resume her gabapentin. Denies other complaints at this time. Objective Data Objective Data Vital Signs: Vital Signs Temp Pulse Resp BP Pulse Ox O2 Del Method 98.3 F 90 18 137/75 H 95 Room Air 02/01/22 14:05 02/01/22 14:05 02/01/22 14:05 02/01/22 14:05 02/01/22 14:05 02/01/22 14:05 Oxygen Delivery Method Room Air Weight: 82.1 kg Body Mass Index (BMI) 30.1 Intake & Output: Intake and Output for Last 24 Hours 01/30/22 01/31/22 02/01/22 23:59 23:59 23:59 Intake Total 1530 / 1530 2560.42 / 2560.42 Output Total 300 / 300 Balance 1530 / 1530 2260.42 / 2260.42 Lab / Micro Data Result Diagrams: 01/31/22 17:53 02/01/22 08:00 Labs: Laboratory Results - last 24 hr 01/31/22 17:53: WBC 8.9, RBC 3.63 L, Hgb 10.8 L, Hct 35.6 L, MCV 98.1, MCH 29.8, MCHC 30.3 L, RDW Std Deviation 52.8 H, RDW Coeff of Nisha 14.7 H, Plt Count 392, MPV 10.0, Immature Gran % (Auto) 0.300, Neut % (Auto) 76.2 H, Lymph % (Auto) 13.6 L, [place] % (Auto) 5.5, Eos % (Auto) 4.1, Baso % (Auto) 0.3, Absolute Neuts (auto) 6.7, Absolute Lymphs (auto) 1.20, Nucleated RBC % 0 01/31/22 17:53: Sodium 142, Potassium 3.8, Chloride 106, Carbon Dioxide 27.0, Anion Gap 9, BUN 13, Creatinine 1.48 H, Estim Creat Clear Calc 35.00, Est GFR (MDRD) Af Amer 45 L, Est GFR (MDRD) Non-Af 37 L, BUN/Creatinine Ratio 8.8 L, Glucose 79, Calcium 9.0, Total Bilirubin 0.30, Direct Bilirubin 0.14, AST 34, ALT 25, Alkaline Phosphatase 113, Total Protein 8.1, Albumin 2.5 L, Globulin 5.6 H 01/31/22 18:15: Urine Color Yellow, Urine Clarity Sl. Cloudy, Urine pH 5.0, Ur Specific [place] 1.025, Urine Protein 30 H, Urine Glucose (UA) Normal, Urine Ketones 5 H, Urine Occult Blood Negative, Urine Nitrite Negative, Urine Bilirubin 1 H, Urine Urobilinogen Normal, Ur Leukocyte Esterase 25 H, Urine RBC 0 SEEN, Urine WBC 5-10 SEEN, Ur Squamous Epith Cells 0 SEEN, Urine Bacteria 1+, Hyaline Casts 25-50 SEEN, Fine Granular Casts 0-5 SEEN, WBC Casts 0-5 SEEN, Urine Mucus 0 SEEN 02/01/22 08:00: Sodium 142, Potassium 3.4 L, Chloride 112 H, Carbon Dioxide 24.0, Anion Gap 6, BUN 12, Creatinine 1.02, Estim Creat Clear Calc 48.82, Est GFR (MDRD) Af Amer 70, Est GFR (MDRD) Non-Af 58 L, BUN/Creatinine Ratio 11.8, Glucose 100, Calcium 7.9 L Physical Exam Const alert Constitutional Narrative: appears anxious HEENT head/scalp atraumatic Eyes EOMs intact bilaterally Neck supple Resp normal respiratory effort and clear to auscultation bilaterally Cardio regular rate and regular rhythm GI soft to palpation, non-tender and non-distended Extremity Extremity Narrative: No edema appreciated, RUE amputation noted Skin Skin Narrative: Scaling over most surfaces of body Neuro moves all extremities Neuro Narrative: Does appear anxious and fidgeting Psych Psych Narrative: Cooperative Assessment & Plan Assessment/Plan (1) Weakness: (2) Dehydration: (3) Psoriasis: (4) Falls: (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 admit patient to general medical floor IV hydration with normal saline at 125 cc/h we will allow regular diet PT eval and treat Will likely need SNF prior to home 2. Dehydration as above IV fluids, monitoring renal function. Pt reports poor PO at home, improving here at this time. BMP in AM 3. Psoriasis- topical emolliant prn itching, will benefit from outpt f/u 4. RUE amputation- phantom pain, resume gabapentin, reduced dose d/t decreased renal function on admission 5. pAfib- on xeralto and amio # DVT prophylaxis?low molecular weight heparin Magali Crocker MD Charges/Coding Visit Charges Inpatient E&M: 16068 Subs Hosp L2
[2022-02-01 20:26] VITALS: BP 144/74; PULSE 94; RESP 18; TEMP 36.7; O2SAT 95
[2022-02-01] MEDS: 0.9% Saline Lock 10 ML Syringe IV (20:37)
[2022-02-01] MEDS: Atorvastatin Calcium 80 MG Tablet PO (22:03)
[2022-02-01] MEDS: Acetaminophen 500 MG Tablet 1000 MG PO (22:03)
[2022-02-01] MEDS: Pantoprazole Sodium 40 MG Tablet PO (22:04)
[2022-02-01] MEDS: Rivaroxaban 20 MG Tablet PO (22:04)
[2022-02-01] MEDS: DULoxetine Hcl 60 MG Capsule PO (22:05)
[2022-02-01] MEDS: Amiodarone 200 MG Tablet PO (22:05)
[2022-02-02] VITALS (8 sets, daily range): BP systolic 116–161; BP diastolic 62–81; PULSE 90–103; RESP 16–20; TEMP 36.1–36.6; O2SAT 92–99
[2022-02-02] MEDS: DiphenhydrAMINE 25 MG Capsule PO ×2 (05:16→21:15)
[2022-02-02] MEDS: Acetaminophen 500 MG Tablet 1000 MG PO (05:16)
--- NOTE | 2022-02-02 07:07 | PCM.PN.HOSP ---
Subjective Subjective DOS 02.02.22 CC phantom pain Pt reports she still feels slightly weak and has phantom pain in upper left limb but starting to feel better overall. PO intake improving. Cr back to baseline. Denies CP or SOB. Itching better with benadryl. Denies other complaints this AM Objective Data Objective Data Vital Signs: Vital Signs Temp Pulse Resp BP Pulse Ox O2 Del Method 97.6 F L 99 20 H 145/81 H 96 Room Air 02/02/22 05:08 02/02/22 05:08 02/02/22 05:08 02/02/22 05:08 02/02/22 05:08 02/02/22 05:14 Oxygen Delivery Method Room Air Weight: 82.1 kg Body Mass Index (BMI) 30.1 Intake & Output: Intake and Output for Last 24 Hours 01/31/22 02/01/22 02/02/22 23:59 23:59 23:59 Intake Total 1530 / 1530 4060.42 / 4060.42 1350 / 1350 Output Total 300 / 300 Balance 1530 / 1530 3760.42 / 3760.42 1350 / 1350 Lab / Micro Data Result Diagrams: 01/31/22 17:53 02/01/22 08:00 Labs: Laboratory Results - last 24 hr 02/01/22 08:00: Sodium 142, Potassium 3.4 L, Chloride 112 H, Carbon Dioxide 24.0, Anion Gap 6, BUN 12, Creatinine 1.02, Estim Creat Clear Calc 48.82, Est GFR (MDRD) Af Amer 70, Est GFR (MDRD) Non-Af 58 L, BUN/Creatinine Ratio 11.8, Glucose 100, Calcium 7.9 L Physical Exam Narrative Psoriasis noted on scalp and chest Const alert Constitutional Narrative: appears anxious HEENT normocephalic and head/scalp atraumatic Eyes EOMs intact bilaterally Neck supple Resp normal respiratory effort Cardio regular rate and regular rhythm GI soft to palpation, non-tender and non-distended Extremity Extremity Narrative: No edema appreciated, RUE amputation noted Skin Skin Narrative: Scaling over most surfaces of body General Skin Exam: no breakdown Neuro moves all extremities Neuro Narrative: Does appear anxious and fidgeting Speech: speech normal Motor Exam: general weakness Psych Psych Narrative: Cooperative Mood & Affect: depressed Assessment & Plan Assessment/Plan (1) Weakness: (2) Dehydration: (3) Psoriasis: (4) Falls: (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 admit patient to general medical floor IV hydration with normal saline at 125 cc/h we will allow regular diet PT eval and treat SNF vs home pending PT recs, pt certainly improving 2. Dehydration as above-1/p IVF, improved PO, ROSS resolved 3. Psoriasis- topical emolliant prn itching, will benefit from outpt f/u, improved today with benadryl 4. RUE amputation- phantom pain, resume gabapentin, reduced dose d/t decreased renal function on admission, if tolerating can increase on d/c or before if not going 5. pAfib- on xeralto and amio # DVT prophylaxis?low molecular weight heparin Magali Crocker MD Charges/Coding Visit Charges Inpatient E&M: 37291 Subs Hosp L1
[2022-02-02] MEDS: Gabapentin 300 MG Capsule PO ×3 (07:46→16:15)
[2022-02-02] MEDS: Potassium Chloride Oral Tablet 20 MEQ 40 MEQ PO (07:47)
[2022-02-02] MEDS: Nystatin Powder 15gm Bottle 1 APPLIC TOPICAL ×2 (07:47→21:14)
[2022-02-02 08:20] LABS: Absolute Lymphocyte Count 0.97 X10^3/uL (0.83-4.51); Absolute Neutrophil Count 2.8 X10^3/uL (2.0-7.7); Basophil# 0.03 X10^3/uL; Basophil% 0.6 % (0-1); Eosinophil# 0.63 X10^3/uL; Hematocrit 28.3 % (37-47); Hemoglobin 8.7 g/dL (12.0-15.0); Lymphocyte # 0.97 X10^3/ul (0.83-4.51); Lymphocyte % 20.1 % (19-41); Mean Corp Hgb Conc 30.7 g/dL (32-36); Mean Corpuscular Hgb 30.1 pg (27.0-32.0); Mean Corpuscular Volume 97.9 fL (81-99); Mean Platelet Vol. 10.1 fl (6.2-12.0); Monocyte# 0.38 X10^3/uL; Monocyte% 7.9 % (0-10); NRBC Flagged by Analyzer 0 % (0-5); Neutrophil # 2.81 X10^3/uL (2.7-7.7); Neutrophil % 58.2 % (47-70); Platelet Count 269 K/mm3 (150-450); RBC Distribution Width CV 14.6 % (11.6-14.6); RBC Distribution Width SD 52.4 fl (35.1-43.9); Red Blood Count 2.89 M/mm3 (4.2-5.4); White Blood Count 4.8 K/mm3 (4.4-11.0)
[2022-02-02 08:47] LABS: ALB/GLOB Ratio 0.4 RATIO (0.9-2.4); AST(SGOT) 26 U/L (15-37); Alanine Aminotransfer ALT/SGPT 20 U/L (13-56); Albumin, Serum 1.9 g/dL (3.2-5.0); Alkaline Phosphatase 81 U/L (45-117); BUN 10 mg/dL (7-18); BUN/Creat Ratio 10.6 RATIO (10-20); Calcium,Total 7.9 mg/dL (8.5-10.1); Chloride 117 mmol/L (98-107); Creatinine, Serum 0.94 mg/dL (0.55-1.02); EST Glomerular Filtration Rate 63 mL/min (>60); Est Glom Filt Rate - Afr Amer 76 mL/min (>60); Estimated Creatinine Clearance 52.97 ml/min; Globulin 4.3 g/dL (2.2-4.2); Glucose 82 mg/dL (74-106); Potassium 4.1 mmol/L (3.5-5.1); Protein, Total 6.2 g/dL (6.4-8.2); Sodium Level 144 mmol/L (136-145)
[2022-02-02 08:48] LABS: Anion Gap 4 (5-15)
[2022-02-02 15:28] LABS: Ferritin 7 ng/mL (8-252); Iron 32 ug/dL (50-170); Iron Binding Capacity,Total 318 ug/dL (250-450)
--- NOTE | 2022-02-02 15:49 | CASEMGMT ---
ALFREDO COLEMAN received tc from mincing machine operator stating [facility] called for pt. Pt is not on registry. ALFREDO COLEMAN in to pt room to make aware that they called and provided phone number to them to call them back. Pt denies again any homegoing needs. Declined [facility].
[2022-02-02] MEDS: Pantoprazole Sodium 40 MG Tablet PO (21:14)
[2022-02-02] MEDS: Amiodarone 200 MG Tablet PO (21:14)
[2022-02-02] MEDS: Rivaroxaban 20 MG Tablet PO (21:15)
[2022-02-02] MEDS: DULoxetine Hcl 60 MG Capsule PO (21:15)
[2022-02-02] MEDS: Atorvastatin Calcium 80 MG Tablet PO (21:15)
[2022-02-03 03:17] VITALS: BP 135/72; PULSE 102; RESP 18; TEMP 36.6; O2SAT 93
[2022-02-03 03:19] VITALS: PULSE 103
[2022-02-03 06:16] LABS: Absolute Lymphocyte Count 1.11 X10^3/uL (0.83-4.51); Absolute Neutrophil Count 2.9 X10^3/uL (2.0-7.7); Basophil# 0.03 X10^3/uL; Basophil% 0.6 % (0-1); Eosinophil# 0.58 X10^3/uL; Eosinophils% 11.6 % (0-5); Hematocrit 28.1 % (37-47); Hemoglobin 8.4 g/dL (12.0-15.0); Lymphocyte # 1.11 X10^3/ul (0.83-4.51); Lymphocyte % 22.1 % (19-41); Mean Corp Hgb Conc 29.9 g/dL (32-36); Mean Corpuscular Hgb 29.5 pg (27.0-32.0); Mean Corpuscular Volume 98.6 fL (81-99); Mean Platelet Vol. 10.3 fl (6.2-12.0); Monocyte# 0.38 X10^3/uL; Monocyte% 7.6 % (0-10); NRBC Flagged by Analyzer 0 % (0-5); Neutrophil # 2.91 X10^3/uL (2.7-7.7); Neutrophil % 57.9 % (47-70); Platelet Count 289 K/mm3 (150-450); RBC Distribution Width CV 14.8 % (11.6-14.6); RBC Distribution Width SD 53.5 fl (35.1-43.9); Red Blood Count 2.85 M/mm3 (4.2-5.4)
[2022-02-03 07:03] LABS: ALB/GLOB Ratio 0.4 RATIO (0.9-2.4); AST(SGOT) 27 U/L (15-37); Alanine Aminotransfer ALT/SGPT 22 U/L (13-56); Albumin, Serum 1.9 g/dL (3.2-5.0); Alkaline Phosphatase 88 U/L (45-117); Anion Gap 6 (5-15); BUN 12 mg/dL (7-18); BUN/Creat Ratio 11.4 RATIO (10-20); Calcium,Total 8.6 mg/dL (8.5-10.1); Chloride 110 mmol/L (98-107); Creatinine, Serum 1.05 mg/dL (0.55-1.02); EST Glomerular Filtration Rate 56 mL/min (>60); Est Glom Filt Rate - Afr Amer 67 mL/min (>60); Estimated Creatinine Clearance 47.42 ml/min; Globulin 4.5 g/dL (2.2-4.2); Glucose 93 mg/dL (74-106); Potassium 4.1 mmol/L (3.5-5.1); Protein, Total 6.4 g/dL (6.4-8.2); Sodium Level 142 mmol/L (136-145)
--- NOTE | 2022-02-03 08:37 | PCM.PN.HOSP ---
Subjective Subjective DOS 02/03/22 CC: Suboptimal appetite Pt reports feeling better today overall, appetite is slowly improving, also pt drinking more water and able to be more hydrated. She would like to go home. No GI bleeding reported, no bowel or bladder changes, no swelling in legs, no chest pain or SOB. Objective Data Objective Data Vital Signs: Vital Signs Temp Pulse Resp BP Pulse Ox O2 Del Method 97.8 F 103 H 18 135/72 H 93 Room Air 02/03/22 03:17 02/03/22 03:19 02/03/22 03:17 02/03/22 03:17 02/03/22 03:17 02/03/22 03:17 Oxygen Delivery Method Room Air Weight: 82.1 kg Body Mass Index (BMI) 30.1 Intake & Output: Intake and Output for Last 24 Hours 02/01/22 02/02/22 02/03/22 23:59 23:59 23:59 Intake Total 4060.42 / 4060.42 2100 / 2100 Output Total 300 / 300 Balance 3760.42 / 3760.42 2099 / 2100 Lab / Micro Data Result Diagrams: 02/03/22 05:17 02/03/22 05:17 Labs: Laboratory Results - last 24 hr 02/02/22 08:06: Sodium 144, Potassium 4.1, Chloride 117 H, Carbon Dioxide 23.0, Anion Gap 4 L, BUN 10, Creatinine 0.94, Estim Creat Clear Calc 52.97, Est GFR (MDRD) Af Amer 76, Est GFR (MDRD) Non-Af 63, BUN/Creatinine Ratio 10.6, Glucose 82, Calcium 7.9 L, Total Bilirubin 0.30, AST 26, ALT 20, Alkaline Phosphatase 81, Total Protein 6.2 L, Albumin 1.9 L, Globulin 4.3 H, Albumin/Globulin Ratio 0.4 L 02/02/22 08:06: Iron 32 L, TIBC 318, Ferritin 7 L 02/03/22 05:17: WBC 5.0, RBC 2.85 L, Hgb 8.4 L, Hct 28.1 L, MCV 98.6, MCH 29.5, MCHC 29.9 L, RDW Std Deviation 53.5 H, RDW Coeff of Nisha 14.8 H, Plt Count 289, MPV 10.3, Immature Gran % (Auto) 0.200, Neut % (Auto) 57.9, Lymph % (Auto) 22.1, [place] % (Auto) 7.6, Eos % (Auto) 11.6 H, Baso % (Auto) 0.6, Absolute Neuts (auto) 2.9, Absolute Lymphs (auto) 1.11, Nucleated RBC % 0 02/03/22 05:17: Sodium 142, Potassium 4.1, Chloride 110 H, Carbon Dioxide 26.0, Anion Gap 6, BUN 12, Creatinine 1.05 H, Estim Creat Clear Calc 47.42, Est GFR (MDRD) Af Amer 67, Est GFR (MDRD) Non-Af 56 L, BUN/Creatinine Ratio 11.4, Glucose 93, Calcium 8.6, Total Bilirubin 0.20, AST 27, ALT 22, Alkaline Phosphatase 88, Total Protein 6.4, Albumin 1.9 L, Globulin 4.5 H, Albumin/Globulin Ratio 0.4 L Micro: Microbiology 02/02/22 21:05 Stool Stool Occult Blood (JUAN CARLOS) - Final Physical Exam Narrative Psoriasis noted on scalp and chest Const alert Constitutional Narrative: appears anxious HEENT normocephalic and head/scalp atraumatic Eyes EOMs intact bilaterally Neck supple Resp normal respiratory effort and clear to auscultation bilaterally Cardio regular rate and regular rhythm GI soft to palpation, non-tender and non-distended Extremity Extremity Narrative: No edema appreciated, RUE amputation noted Skin Skin Narrative: Scaling over most surfaces of body General Skin Exam: no breakdown Neuro moves all extremities Neuro Narrative: Does appear anxious and fidgeting Speech: speech normal Motor Exam: general weakness Psych Psych Narrative: Cooperative Assessment & Plan Assessment/Plan (1) Weakness: (2) Dehydration: (3) Psoriasis: (4) Falls: (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 admit patient to general medical floor IV hydration with normal saline at 125 cc/h we will allow regular diet PT eval and treat Pt feeling much better and would like to go home Upon questioning pt further she does have an understanding of her health problems and was answering questions appropriately, will d/c home #Iron deficiency anemia FOBT negative but labs concerning for iron deficiency so likely not GI source Possibly poor PO vs chronic bed bugs Will prescribe iron Will be very important pt f/u with PCP but given no active bleeding no further inpatient workup indicated. 2. Dehydration as above-1/p IVF, improved PO, ROSS resolved 3. Psoriasis- topical emolliant prn itching, will benefit from outpt f/u 4. RUE amputation- phantom pain, resume gabapentin, reduced dose d/t decreased renal function on admission, can resume home dose on d/c 5. pAfib- on xeralto and amio, given no active hemorrhage risks outweigh benefits of stopping xeralto # DVT prophylaxis?low molecular weight heparin Magali Crocker MD Charges/Coding Visit Charges Inpatient E&M: 81757 Subs Hosp L2
[2022-02-03 09:08] VITALS: BP 130/77; PULSE 92; RESP 16; TEMP 36.2; O2SAT 98
[2022-02-03] MEDS: Nystatin Powder 15gm Bottle 1 APPLIC TOPICAL (09:10)
[2022-02-03] MEDS: DiphenhydrAMINE 25 MG Capsule PO (09:10)
[2022-02-03] MEDS: Gabapentin 300 MG Capsule PO ×2 (09:10→12:26)
--- NOTE | 2022-02-03 10:50 | NURSING ---
talked with patient regarding multiple phone called from individuals identifying themselves as her friends, including someone named bhavna, that brought her in- unable to disclose to her location or transfer calls- discussed being on/not being on the directory. aware at this time pt verbalized she does not want to be on the directory at this time and will call her friends later.
[2022-02-03] MEDS: Ferrous Sulfate 325 MG Tablet PO (11:05)
--- NOTE | 2022-02-03 11:10 | WOUNDNOTE ---
Was asked by nursing to assess overall skin. patient has a history of psoriasis and had bed bugs on arrival to the hospital. patient has numerous bites and scratches over body. dry flaky skin noted. pt is currently using Aquaphor. patient is still scratching at her skin. will switch over to Eucerin to see if that will help. no signs of infection noted. bilateral ankles are slightly more red that the rest of the legs. patient appears to have been scratching at the ankles. will monitor. patient denies further needs at this time.
[2022-02-03 15:00] VITALS: BP 146/85; PULSE 105; RESP 16; TEMP 36.7; O2SAT 94
--- NOTE | 2022-02-03 15:10 | DCINST_ITS ---
Discharge Instructions Diet Discharge Diet: No restrictions Activity Discharge Activity: Return to Normal Activity Follow Up Care Test Results: Test results from this visit will be discussed in further detail at your follow- up appointment, if applicable. Discharge Plan Admission Admit Date/Time: 01/31/22 21:26 Primary Reason for Your Visit: Weakness and dehydration Attending Provider: Magali Crocker Primary Care Provider: Juan Alberto Consulting Providers: Sudhakar Borjas Instructions Patient Instructions: Bedbugs, Dehydration Additional Instructions / Restrictions: *Please take this with you to your next doctors appointment* 1. Please follow up with your audiology technician for your psoriasis 2. You were found to have low blood counts, you will need to obtain lab work through your primary care physician in 1 week, please call the office to obtain an order for a CBC 3. You will be started on an iron supplement due to low iron. Please take this 4. It is very important that you follow up with your primary care physician within 1 week, please discuss your low blood counts with them and possible need for further workup. 5. Please return to the ED or call 911 with any concerning signs or symptoms 6. Your low blood counts could be due to several factors, including bed bugs. Please discuss with your primary care physician about ways to eradicate them. Discharge Orders/Prescriptions Prescriptions: New ferrous sulfate [FeroSul] 325 mg (65 mg iron) Tablet 325 mg PO DAILY@1200 30 Days Qty: 90 0RF Continued duloxetine 60 MG capsule,delayed release(DR/EC) 60 mg PO QHS atorvastatin 80 mg tablet 80 mg PO QHS Label Comments: Take 1 tablet by mouth once daily. amiodarone 200 mg tablet 200 mg PO QHS Label Comments: Take 1 tablet by mouth once daily. acetaminophen [Tylenol Extra Strength] 500 mg Tablet 1,000 mg PO Q4H PRN (Reason: Pain) pantoprazole 40 mg tablet,delayed release (DR/EC) 40 mg PO QHS Label Comments: Take 1 tablet by mouth once daily. diphenhydramine HCl [Benadryl Allergy] 25 mg Tablet 25 mg PO TID PRN (Reason: Itching) Xarelto 20 mg tablet 20 mg PO QHS Label Comments: Take 1 tablet by mouth once daily. gabapentin 300 mg capsule 600 mg PO TID Label Comments: TAKE 2 CAPSULES BY MOUTH THREE TIMES DAILY hydroxyzine HCl 25 mg tablet 25 mg PO TID PRN (Reason: Itching) Label Comments: TAKE 1 TABLET BY MOUTH EVERY 8 HOURS NEEDED FOR ITCHING Referrals / Follow Up: Juan Alberto MD [Primary Care Provider] - Within 1 Week Disposition Disposition (needs filled in before D/C Order can be placed): Home, Self Care
[2022-02-03] MEDS: Petrolatum 33% Tube 1 APPLIC TOPICAL (15:49)
--- NOTE | 2022-02-03 16:24 | PCM.DC.SUM ---
Providers Date of Admission: 01/31/22 Date of Discharge: 02/03/22 Primary Care Physician: Dr. 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: Status: Acute Code(s): S48.112A - Complete traumatic amputation at level between left shoulder and elbow, initial encounter Plan #generalized weakness #Iron deficiency anemia # Dehydration # Psoriasis # RUE amputation # pAfib Medications at Discharge Home Medications duloxetine 60 mg capsule,delayed release 60 mg PO QHS depression 10/30/17 acetaminophen 500 mg tablet (Tylenol Extra Strength) 1,000 mg PO Q4H PRN Pain 09/11/20 amiodarone 200 mg tablet 200 mg PO QHS AFIB 09/11/20 atorvastatin 80 mg tablet 80 mg PO QHS CHOLESTEROL 09/11/20 diphenhydramine HCl 25 mg tablet (Benadryl Allergy) 25 mg PO TID PRN Itching 09/11/20 pantoprazole 40 mg tablet,delayed release 40 mg PO QHS GERD 09/11/20 rivaroxaban 20 mg tablet (Xarelto) 20 mg PO QHS BLOOD THINNER 09/11/20 gabapentin 300 mg capsule 600 mg PO TID NERVE 01/31/22 hydroxyzine HCl 25 mg tablet 25 mg PO TID PRN Itching 01/31/22 ferrous sulfate 325 mg (65 mg iron) tablet (FeroSul) 325 mg PO DAILY@1200 30 days #90 tabs 02/03/22 Hospital Course Summary of Care Provided Minutes Spent on Discharge: 32 Hospital Course: PHONG JACKSON, is a 66 F who presented to [facility] ER 01/31/22 with chief complaint of generalized weakness.? Patient has significant past medical history of stroke and left arm amputation. She did have confusion and has been unable to care for herself well at home prior to admission.? If she takes 5 steps she becomes more confused and short of breath and has already had 1 fall earlier the day of admission but denies hitting her head or other trauma.? Creatinine level is elevated from baseline indicating dehydration and acute kidney injury.? The patient was also diagnosed with bedbugs and severe psoriasis in the emergency room.? Phong was admitted and given IV fluids and her kidney function improved as did her generalized weakness. Her mentation also improved and she was no longer confused, she worked with physical therapy and was deemed okay to go home. She was noted to have anemia, iron panel revealed iron deficiency anemia. UBT was negative however. Suspect combination of poor p.o. intake and bedbugs. Denies any postmenopausal bleeding or any other bleeding noted. Given no active bleeding and no evidence of GI bleed it was advised that she begin iron supplementation and follow closely with her outpatient physician for further work-up. No acute needs at this time. She does remain on Xarelto, given lack of evidence of acute bleed and no evidence of GI bleed her Xarelto has been continued. Weight / BMI Weight Weight: 82.1 kg Body Mass Index (BMI) 30.1 ABG / Lab / Microbiology Data Result Diagrams: 02/03/22 05:17 02/03/22 05:17 Laboratory: Laboratory Results - last 24 hr 02/03/22 05:17: WBC 5.0, RBC 2.85 L, Hgb 8.4 L, Hct 28.1 L, MCV 98.6, MCH 29.5, MCHC 29.9 L, RDW Std Deviation 53.5 H, RDW Coeff of Nisha 14.8 H, Plt Count 289, MPV 10.3, Immature Gran % (Auto) 0.200, Neut % (Auto) 57.9, Lymph % (Auto) 22.1, [place] % (Auto) 7.6, Eos % (Auto) 11.6 H, Baso % (Auto) 0.6, Absolute Neuts (auto) 2.9, Absolute Lymphs (auto) 1.11, Nucleated RBC % 0 02/03/22 05:17: Sodium 142, Potassium 4.1, Chloride 110 H, Carbon Dioxide 26.0, Anion Gap 6, BUN 12, Creatinine 1.05 H, Estim Creat Clear Calc 47.42, Est GFR (MDRD) Af Amer 67, Est GFR (MDRD) Non-Af 56 L, BUN/Creatinine Ratio 11.4, Glucose 93, Calcium 8.6, Total Bilirubin 0.20, AST 27, ALT 22, Alkaline Phosphatase 88, Total Protein 6.4, Albumin 1.9 L, Globulin 4.5 H, Albumin/Globulin Ratio 0.4 L Microbiology: Microbiology 02/02/22 21:05 Stool Stool Occult Blood (JUAN CARLOS) - Final D/C Instructions Discharge Diet: No restrictions Meaningful Use Info Meaningful Use Diagnoses (Choose all that apply): None applicable Discharge Plan Admission Admit Date/Time: 01/31/22 21:26 Primary Reason for Your Visit: Weakness and dehydration Attending Provider: Magali Crocker Primary Care Provider: Juan Alberto Consulting Providers: Sudhakar Borjas Instructions Patient Instructions: Bedbugs, Dehydration Additional Instructions / Restrictions: *Please take this with you to your next doctors appointment* 1. Please follow up with your convertible sofa bedspring tester for your psoriasis 2. You were found to have low blood counts, you will need to obtain lab work through your primary care physician in 1 week, please call the office to obtain an order for a CBC 3. You will be started on an iron supplement due to low iron. Please take this 4. It is very important that you follow up with your primary care physician within 1 week, please discuss your low blood counts with them and possible need for further workup. 5. Please return to the ED or call 911 with any concerning signs or symptoms 6. Your low blood counts could be due to several factors, including bed bugs. Please discuss with your primary care physician about ways to eradicate them. Discharge Orders/Prescriptions Prescriptions: New ferrous sulfate [FeroSul] 325 mg (65 mg iron) Tablet 325 mg PO DAILY@1200 30 Days Qty: 90 0RF Continued duloxetine 60 MG capsule,delayed release(DR/EC) 60 mg PO QHS atorvastatin 80 mg tablet 80 mg PO QHS Label Comments: Take 1 tablet by mouth once daily. amiodarone 200 mg tablet 200 mg PO QHS Label Comments: Take 1 tablet by mouth once daily. acetaminophen [Tylenol Extra Strength] 500 mg Tablet 1,000 mg PO Q4H PRN (Reason: Pain) pantoprazole 40 mg tablet,delayed release (DR/EC) 40 mg PO QHS Label Comments: Take 1 tablet by mouth once daily. diphenhydramine HCl [Benadryl Allergy] 25 mg Tablet 25 mg PO TID PRN (Reason: Itching) Xarelto 20 mg tablet 20 mg PO QHS Label Comments: Take 1 tablet by mouth once daily. gabapentin 300 mg capsule 600 mg PO TID Label Comments: TAKE 2 CAPSULES BY MOUTH THREE TIMES DAILY hydroxyzine HCl 25 mg tablet 25 mg PO TID PRN (Reason: Itching) Label Comments: TAKE 1 TABLET BY MOUTH EVERY 8 HOURS NEEDED FOR ITCHING Referrals / Follow Up: Juan Alberto MD [Primary Care Provider] - Within 1 Week Disposition Disposition (needs filled in before D/C Order can be placed): Home, Self Care Charges/Coding Visit Charges Inpatient E&M: 80588 Disch Hosp
== END 2022-02-03 18:57 | disposition home or self-care (01) | DRG 641 ==
LOC: ED 21:30 → MS3 22:01
PROVIDERS: Admitting Provider Family Medicine; Emergency Provider Emergency Medicine; PCP Family Medicine; Visit Provider Internal Medicine
DX: E86.0 Dehydration (principal); N17.9 Acute kidney failure, unspecified; M06.9 Rheumatoid arthritis, unspecified; I48.0 Paroxysmal atrial fibrillation; Z89.222 Acquired absence of left upper limb above elbow; F17.210 Nicotine dependence, cigarettes, uncomplicated; D50.9 Iron deficiency anemia, unspecified; F32.A Depression, unspecified; I10 Essential (primary) hypertension; L40.9 Psoriasis, unspecified; G89.29 Other chronic pain; Z79.01 Long term (current) use of anticoagulants; Z86.73 Personal history of transient ischemic attack (TIA), and cerebral infarction without residual deficits; Z86.718 Personal history of other venous thrombosis and embolism; Z79.899 Other long term (current) drug therapy; K21.9 Gastro-esophageal reflux disease without esophagitis; T14.8XXA Other injury of unspecified body region, initial encounter; W57.XXXA Bitten or stung by nonvenomous insect and other nonvenomous arthropods, initial encounter
CPT/HCPCS: 36415; 80048; 80053; 80076; 81001; 82274; 82728; 83540; 83550; 85025; 96360; 96361; 97162; 97166; 97530; 97535; 99218; 99285; J7030; A4216; G0378

== ENCOUNTER 2022-02-10 12:43 | Emergency (ER) | payer MEDICARE, MEDICAID, SELFPAY ==
[2022-02-10 12:44] VITALS: BP 127/84; PULSE 105; RESP 16; TEMP 35.8; O2SAT 97; BMI 30.7
--- NOTE | 2022-02-10 13:28 | EKG12_ITS ---
Test Reason : Blood Pressure : / mmHG Vent. Rate : 100 BPM Atrial Rate : 000 BPM P-R Int : 000 ms QRS Dur : 066 ms QT Int : 334 ms P-R-T Axes : 000 021 029 degrees QTc Int : 430 ms Somatic/Motion Artifact Sinus vs Ectopic Atrial Rhythm Abnormal ECG Confirmed by PAULA ESPANA, VICTOR M ([id number]), design editor ALEXEY IRVING ([id number] on 02/14/2022 9:43:52 AM Referred By: Confirmed By:VICTOR M MITCHELL MD
--- NOTE | 2022-02-10 13:36 | EDS_ITS ---
HPI History of Present Illness Chief Complaint: General Illness Informant: patient Narrative Narrative: Presents by private vehicle for evaluation of dyspnea over the past 2 months. States mild cough. No fevers or headache. No productive sputum. No vomiting or diarrhea. No urinary symptoms. COVID vaccinated with boosters. History of atrial fibrillation on amiodarone and Xarelto. 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 She reports followed by cardiology Dr. Layne last seen 6 months ago, had recommended that she get off some medications and she did not like that. She is try to get established with cardiology here. From triage note, reported patient unable to take care of her self at home. She reports she is able to take care of herself going to the restroom she states she goes and drives to get food. She has been dealing with bedbugs and had house taking care of twice and paid a lot of money. She has severe psoriasis is currently not on any treatment. Reported having shakes however due to feeling cold. [facility] Medical History Amputation of left arm Anxiety Atrial fibrillation Chronic pain DVT (deep venous thrombosis) GERD (gastroesophageal reflux disease) Hypertension Kidney stones Psoriasis Rheumatoid arthritis Smoker Stroke/cerebrovascular accident Transient hypotension Home Medications duloxetine 60 mg capsule,delayed release 60 mg PO QHS depression 10/30/17 [History Last Taken 01/30/22] acetaminophen 500 mg tablet (Tylenol Extra Strength) 1,000 mg PO Q4H PRN Pain 09/11/20 [History Last Taken 09/11/20] amiodarone 200 mg tablet 200 mg PO QHS AFIB 09/11/20 [History Last Taken 01/30] atorvastatin 80 mg tablet 80 mg PO QHS CHOLESTEROL 09/11/20 [History Last Taken 01/30/22] diphenhydramine HCl 25 mg tablet (Benadryl Allergy) 25 mg PO TID PRN Itching 09/11/20 [History Last Taken 09/11/20] pantoprazole 40 mg tablet,delayed release 40 mg PO QHS GERD 09/11/20 [History Last Taken 01/30/22] rivaroxaban 20 mg tablet (Xarelto) 20 mg PO QHS BLOOD THINNER 09/11/20 [History Last Taken 01/30/22] gabapentin 300 mg capsule 600 mg PO TID NERVE 01/31/22 [History Last Taken 01/30/22] hydroxyzine HCl 25 mg tablet 25 mg PO TID PRN Itching 01/31/22 [History Last Taken Unknown] ferrous sulfate 325 mg (65 mg iron) tablet (FeroSul) 325 mg PO DAILY@1200 30 days #90 tabs 02/03/22 [Rx Last Taken Unknown] ferrous sulfate 325 mg (65 mg iron) tablet (Iron (ferrous sulfate)) 325 mg PO DAILY #30 tabs 02/10/22 [Rx Last Taken Unknown] Allergy/AdvReac Type Severity Reaction Status Date / Time Penicillins [PCN] Allergy Rash Verified 02/10/22 12:44 sulfamethoxazole Allergy Rash Verified 02/10/22 12:44 [From Bactrim] trimethoprim [From Bactrim] Allergy Rash Verified 02/10/22 12:44 Family History Mother Heart disease Father Heart disease Sister Heart disease Brother Heart disease Surgical History Hx of colonoscopy Social History household members: none housing: house number of children: 0 Smoking Status: Current some day smoker tobacco type: cigarettes ROS ROS ED Constitutional Constitutional ED: Reports chills; Denies fever(s) or sweats Eyes Eyes: Denies change in vision ENT ENT ED: Denies dysphagia or sore throat Cardiovascular Cardiovascular: Denies chest pain, leg edema, palpitations or racing heartbeat Respiratory/Chest Respiratory/Chest: Reports dyspnea; Denies cough or dyspnea on exertion Gastrointestinal Gastrointestinal: Denies abdominal pain, diarrhea, nausea or vomiting Genitourinary Genitourinary ED: Denies dysuria, hematuria or urinary frequency Musculoskeletal Musculoskeletal: Denies back pain, extremity pain or neck pain Integumentary Denies rash or wounds Neurologic Neurologic: Denies headache(s), paresthesias or weakness EXAM Physical Exam Const Vital Signs: 02/10/22 12:44 02/10/22 13:02 02/10/22 15:20 Temperature 96.5 F L Temperature Source Temporal Pulse Rate 105 H 97 Respiratory Rate 16 15 Respiratory Effort Normal Respiratory Pattern Normal Blood Pressure 127/84 H Blood Pressure Mean 98 Pulse Ox 97 100 Oxygen Delivery Method Room Air Room Air Positive well nourished and well developed General Appearance ED: well developed and NAD HEENT Reports moist mucous membranes normocephalic and atraumatic Eyes PERRL, EOMs intact bilaterally and conjunctivae normal General Eye ED: Yes normal appearance of both eyes Neck no lymphadenopathy and supple General: Negative for tenderness Chest Wall Chest: Negative for tenderness Resp normal respiratory effort and normal air movement Effort and Inspection: symmetric chest movement; Negative for respiratory distress Cardio regular rate, regular rhythm and no murmurs Peripheral Pulses: pulses 2+ throughout GI normal to inspection, nondistended, normoactive bowel sounds and non-tender Palpation: Negative for guarding or rebound tenderness present Back/Spine no CVA tenderness and no thoracic nor lumbar tenderness Extremity normal to inspection Extremity Narrative: Left upper extremity amputation above the elbow. General Extremety ED: Negative for edema or tenderness General Extremity: Negative for edema Neuro oriented x3 and no sensory deficits noted Sensorium / Orientation: awake and alert Skin Skin Narrative: Severe psoriasis changes generalized throughout body including face abdomen arms and legs. No drainage. MDM MDM MDM Narrative Medical decision making narrative: Patient initial tachycardia of 105. Pulse ox stable. She is on Xarelto, she states she has been taking it therefore lower concern for PE. Chest x-ray rev iewed by myself and read by radiology negative. Labs with stable anemia 8.9 white count 7 creatinine 1.09. Urine noted 100 leukocytes WBCs 10-25 her squamous cells 5-10. Urine culture sent. Asymptomatic therefore will not treat unless cultures are positive. I did have case management rediscussed with the patient apparently was seen 10 days ago declining with time. She is given resources to call to see if she qualifies for assistance. She states she she is able to manage herself at home currently and drove herself here. Therefore admission for placement is not necessary. Discussed with her anemia she states she thinks she was given prescription to her pharmacy however when she checked her pharmacy was not there. Iron prescription was noted in her medication list, she states she is not taking it therefore 1 month supply was sent to her pharmacy. Appears to be written by hospitalist service. She will follow-up with her PCP with return precautions. All questions were answered. Lab Data Attestation: I reviewed the patient's lab results. Labs: Laboratory Results - last 24 hr 10/20/22 10/20/22 10/20/22 13:45 13:45 14:30 WBC 7.0 RBC 3.00 L Hgb 8.9 L Hct 29.1 L MCV 97.0 MCH 29.7 MCHC 30.6 L RDW Std Deviation 53.3 H RDW Coeff of Nisha 15.0 H Plt Count 358 MPV 9.8 Immature Gran % (Auto) 0.300 Neut % (Auto) 69.2 Lymph % (Auto) 14.3 L Andrew % (Auto) 8.1 Eos % (Auto) 7.4 H Baso % (Auto) 0.7 Absolute Neuts (auto) 4.9 Absolute Lymphs (auto) 1.00 Nucleated RBC % 0 Sodium 140 Potassium 3.4 L Chloride 106 Carbon Dioxide 26.0 Anion Gap 8 BUN 8 Creatinine 1.09 H Estim Creat Clear Calc 45.68 Est GFR (MDRD) Af Amer 64 Est GFR (MDRD) Non-Af 53 L BUN/Creatinine Ratio 7.3 L Glucose 106 Calcium 8.0 L Total Bilirubin 0.30 AST 30 ALT 26 Alkaline Phosphatase 97 Total Protein 6.9 Albumin 2.0 L Globulin 4.9 H Albumin/Globulin Ratio 0.4 L Urine Color Yellow Urine Clarity Sl. Cloudy Urine pH 5.0 Ur Specific [place] 1.020 Urine Protein 15 H Urine Glucose (UA) Normal Urine Ketones Negative Urine Occult Blood 10 H Urine Nitrite Negative Urine Bilirubin Negative Urine Urobilinogen Normal Ur Leukocyte Esterase 100 H Urine RBC 0-5 SEEN Urine WBC 10-25 SEEN Ur Squamous Epith Cells 5-10 SEEN Urine Bacteria 1+ Urine Mucus 1+ Radiography Diagnostic Testing: Clinical Impression(s) from Imaging Studies Chest X-Ray 02/10/22 14:15 IMPRESSION: Normal x-ray examination of the chest. Electronically Signed: Oleg Franklin MD at 14:59 EDT , EKG Initial EKG: Attestation: I personally reviewed and interpreted this EKG as follows: Comments: Sinus rate of 100, no ST or T wave changes. Not accelerated junctional as noted on electronic EKG. Discharge Plan Triage Chief Complaint: General Illness ED Provider: Ruiz Olivas Dx/Rx/DC Orders Clinical Impression: Anemia, Dyspnea, Paroxysmal A-fib, Infestation by bed bug, Psoriasis Instructions: Anemia, ED Dyspnea, ED Psoriasis, ED Bedbug Bites Prescriptions: New ferrous sulfate [Iron (ferrous sulfate)] 325 mg (65 mg iron) tablet 325 mg PO DAILY Qty: 30 0RF No Action duloxetine 60 MG capsule,delayed release(DR/EC) 60 mg PO QHS atorvastatin 80 mg tablet 80 mg PO QHS Label Comments: Take 1 tablet by mouth once daily. amiodarone 200 mg tablet 200 mg PO QHS Label Comments: Take 1 tablet by mouth once daily. acetaminophen [Tylenol Extra Strength] 500 mg Tablet 1,000 mg PO Q4H PRN (Reason: Pain) pantoprazole 40 mg tablet,delayed release (DR/EC) 40 mg PO QHS Label Comments: Take 1 tablet by mouth once daily. diphenhydramine HCl [Benadryl Allergy] 25 mg Tablet 25 mg PO TID PRN (Reason: Itching) Xarelto 20 mg tablet 20 mg PO QHS Label Comments: Take 1 tablet by mouth once daily. gabapentin 300 mg capsule 600 mg PO TID Label Comments: TAKE 2 CAPSULES BY MOUTH THREE TIMES DAILY hydroxyzine HCl 25 mg tablet 25 mg PO TID PRN (Reason: Itching) Label Comments: TAKE 1 TABLET BY MOUTH EVERY 8 HOURS NEEDED FOR ITCHING ferrous sulfate [FeroSul] 325 mg (65 mg iron) Tablet 325 mg PO DAILY@1200 30 Days Qty: 90 0RF Primary Care Provider: Juan Alberto Referrals: Charli Rosales MD [Med Staff - Active Staff] - 1-2 Weeks Juan Alberto MD [Primary Care Provider] - 5-7 Days Activity Restrictions/Additional Instructions: Hemoglobin 8.9. Your medication list notes you had an iron prescription however he states he there was none at your pharmacy. This was resent to your pharmacy. Follow-up with your doctor. Chest x-ray negative. Call for additional resources and outpatient given to by case management. Follow-up with your doctor. Disposition Disposition: Home, Self Care
--- NOTE | 2022-02-10 13:40 | EKG12_ITS ---
Test Reason : Blood Pressure : / mmHG Vent. Rate : 100 BPM Atrial Rate : 000 BPM P-R Int : 000 ms QRS Dur : 066 ms QT Int : 334 ms P-R-T Axes : 000 021 029 degrees QTc Int : 430 ms Sinus tachycardia Abnormal ECG When compared with ECG of 27-APR-2021 13:28, Junctional rhythm has replaced Sinus rhythm Confirmed by DAIANA ESPANA, BE ([id number]), editor sound ALEXEY IRVING ([id number]) on 02/14/2022 2:20:30 PM Referred By: Confirmed By:BE AHMADI MD
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
[2022-02-10 13:56] LABS: Absolute Neutrophil Count 4.9 X10^3/uL (2.0-7.7); Basophil# 0.05 X10^3/uL; Basophil% 0.7 % (0-1); Eosinophil# 0.52 X10^3/uL; Eosinophils% 7.4 % (0-5); Hematocrit 29.1 % (37-47); Hemoglobin 8.9 g/dL (12.0-15.0); Lymphocyte % 14.3 % (19-41); Mean Corp Hgb Conc 30.6 g/dL (32-36); Mean Corpuscular Hgb 29.7 pg (27.0-32.0); Mean Platelet Vol. 9.8 fl (6.2-12.0); Monocyte# 0.57 X10^3/uL; Monocyte% 8.1 % (0-10); NRBC Flagged by Analyzer 0 % (0-5); Neutrophil # 4.85 X10^3/uL (2.7-7.7); Neutrophil % 69.2 % (47-70); Platelet Count 358 K/mm3 (150-450); RBC Distribution Width SD 53.3 fl (35.1-43.9)
[2022-02-10 14:13] LABS: ALB/GLOB Ratio 0.4 RATIO (0.9-2.4); AST(SGOT) 30 U/L (15-37); Alanine Aminotransfer ALT/SGPT 26 U/L (13-56); Alkaline Phosphatase 97 U/L (45-117); Anion Gap 8 (5-15); BUN 8 mg/dL (7-18); BUN/Creat Ratio 7.3 RATIO (10-20); Chloride 106 mmol/L (98-107); Creatinine, Serum 1.09 mg/dL (0.55-1.02); EST Glomerular Filtration Rate 53 mL/min (>60); Est Glom Filt Rate - Afr Amer 64 mL/min (>60); Estimated Creatinine Clearance 45.68 ml/min; Globulin 4.9 g/dL (2.2-4.2); Glucose 106 mg/dL (74-106); Potassium 3.4 mmol/L (3.5-5.1); Protein, Total 6.9 g/dL (6.4-8.2); Sodium Level 140 mmol/L (136-145)
--- NOTE | 2022-02-10 14:15 | RAD_ITS ---
STUDY: X-RAY CHEST REASON FOR EXAM: Female, 66 years old. sob TECHNIQUE: Single AP portable view of the chest. COMPARISON: 04/27/2021 FINDINGS: The lungs are clear and expanded. There is no demonstrated pleural abnormality. Normal size heart. Normal mediastinum and doug. Normal visualized pulmonary arteries. Normal visualized aortic arch and descending thoracic aorta. Normal visualized thoracic spine. Normal visualized ribs, clavicles, and shoulders. There is no demonstrated abnormality of the visualized soft tissue structures of the upper abdomen. RAD/Chest 1 View (Portable) IMPRESSION: Normal x-ray examination of the chest. Electronically Signed: Oleg Franklin MD at 14:59 EDT ,
[2022-02-10 14:42] LABS: Color, Urine Yellow (Yellow); Glucose, Dipstick Normal (Normal); Ketone-Dipstick Negative (Negative); Leukocyte Esterase-Dipstick 100 /ul (Negative); Nitrite-Dipstick Negative (Negative); Occult Blood-Urine 10 /ul (Negative); Protein-Dipstick 15 mg/dl (Negative); Urine Bilirubin Dipstick Negative (Negative); Urine Clarity Sl. Cloudy (Clear); Urine Urobilinogen Normal (Normal)
[2022-02-10 14:48] LABS: Bacteria 1+ /hpf (None Seen); Mucous, Urine 1+ /hpf (<or=2+); Red Blood Cells-Urine 0-5 SEEN /hpf (0-5); Squamous Epithelial Cells - UA 5-10 SEEN /hpf (5-10); White Blood Cells 10-25 SEEN /hpf (0-5)
[2022-02-10 15:20] VITALS: PULSE 97; RESP 15; O2SAT 100
--- NOTE | 2022-02-10 15:43 | ED.RN ---
concerns about pt ability to care for herself at home expressed to ed dr. no further orders entered at this time. jose dumont, rn [id number]
[2022-02-10 16:28] VITALS: BP 125/81; PULSE 98; RESP 15; O2SAT 100
--- NOTE | 2022-02-10 16:28 | ED.RN ---
pt provided paper scrubs to leave facility. she called a friend to help her get into her home. extended amount of time spent educating and dressing patient for home. she was taken to her car by wheelchair. ambulated to car without gait or balance disturbance. pt visualized closing her car door in the flatbed company driver seat. car was filled with old newspaper and junk. jose dumont rn [id number]
--- NOTE | 2022-02-11 11:05 | CM.ED ---
Addendum entered by Megan Tripp 02/11/22 11:48: MARYSE called [facility] and phone lines still down. MARYSE sent confidential email to William Garcia at [facility] reporting concerns this selling underwriter had regarding patient and her welfare in the home. Megan BUCIO Original Note: MARYSE Note MARYSE has made multiple attempts on this date to call [facility] but line is busy. Per web site. They are having issues with their phones. MARYSE will continue to attempt to contact [facility] worker. No email address on web site. Megan BUCIO
== END 2022-02-10 16:32 | disposition home or self-care (01) ==
PROVIDERS: Emergency Provider Emergency Medicine; PCP Family Medicine; Visit Provider Emergency Medicine
DX: D64.9 Anemia, unspecified (principal); I48.0 Paroxysmal atrial fibrillation; I10 Essential (primary) hypertension; L40.9 Psoriasis, unspecified; F17.210 Nicotine dependence, cigarettes, uncomplicated; B88.8 Other specified infestations; K21.9 Gastro-esophageal reflux disease without esophagitis; Z86.73 Personal history of transient ischemic attack (TIA), and cerebral infarction without residual deficits; Z79.899 Other long term (current) drug therapy
CPT/HCPCS: 71045; 80053; 81001; 85025; 87077; 87086; 87088; 87186; 87811; 93005; 99285